=== PATIENT | male | born 1970 | race African-American/Black ===

== ENCOUNTER 2024-11-16 11:08 | Outpatient (OUT) | payer OTHER, SELFPAY ==
--- NOTE | 2024-11-16 11:13 | ECG_ITS ---
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 Measurements Intervals [place] Rate: 54 P: 59 IA: 197 QRS: 37 QRSD: 83 T: 53 QT: 413 QTc: 392 Interpretive Statements SINUS BRADYCARDIA Otherwise normal ECG No previous ECG available for comparison Electronically Signed On 11-16-2024 19:09:48 EDT by TANIA BLACKBURN M.D.
--- NOTE | 2024-11-16 11:36 | XR_ITS ---
The [place] [id number] Patient Name: TAMAR SCOTT MRN: [id number] date: 1970 Sex: M Assigned Patient Location: [facility] Current Patient Location: [facility] Accession/Order Number: [id number] Exam Date: 11/16/2024 12:14 Report Date: 11/16/2024 12:15 At the request of: CLEOPATRA RAMOS MD Procedure: XR chest 2V Chest 2 views CLINICAL HISTORY: Preop exam COMPARISON: None FINDINGS: Heart normal in size. Scattered areas of lung scarring. No consolidation pneumothorax pleural effusion or free air. XR/XR chest 2V IMPRESSION: NO ACUTE CARDIOPULMONARY ABNORMALITY. Impression dictated by: Graham Francisco Jr., D.OAde11/16/2024 12:15 PM Dictation Location: [place] [address] Electronically authenticated by: [id number] Y Date: 11/16/2024 12:15
--- NOTE | 2024-11-16 11:50 | P.GSHP_ITS ---
History of Present Illness History of Present Illness Chief complaint: Left Hydrocele Narrative: Patient presents for presurgical testing with a complaint of left scrotal swelling. The patient states he has been diagnosed with a hydrocele. He also reports intermittent pain and burning with urination, incomplete bladder emptying, urinary frequency and urgency with nocturia, and urge incontinence. Patient denies abdominal pain, nausea, fever, visible hematuria, or any other complaints. Review of Systems ROS Narrative REVIEW OF SYSTEMS: Negative except as stated in HPI, ten or more sys tems reviewed. Constitutional: No fever, chills, weakness ENT: No sore throat or epistaxis Cardiovascular: No edema, chest pain, palpitations, or activity intolerance Respiratory: No shortness of breath, cough, or wheezing Musculoskeletal: No joint pain or swelling Gastrointestinal: No abdominal pain, constipation, diarrhea, or vomiting Genitourinary: No dysuria or hematuria Neurological: No numbness, tingling, weakness, or headache Psychiatric: No mood changes PFSH PFSH Medical History (Updated 11/16/24 @ 11:38 by Cathy Mason NP) Benign prostatic hyperplasia with lower urinary tract symptoms ?N40.1 - Benign prostatic hyperplasia with lower urinary tract symptoms (ICD- 10) Arthritis ?M19.90 - Unspecified osteoarthritis, unspecified site (ICD-10) Low iron ?E61.1 - Iron deficiency (ICD-10) Back pain ?M54.9 - Dorsalgia, unspecified (ICD-10) Anxiety ?F41.9 - Anxiety disorder, unspecified (ICD-10) Asthma ?J45.909 - Unspecified asthma, uncomplicated (ICD-10) Hydrocele ?N43.3 - Hydrocele, unspecified (ICD-10) Heartburn ?R12 - Heartburn (ICD-10) Hypertension ?I10 - Essential (primary) hypertension (ICD-10) High cholesterol ?E78.00 - Pure hypercholesterolemia, unspecified (ICD-10) Diabetes ?E11.9 - Type 2 diabetes mellitus without complications (ICD-10) Surgical History (Updated 11/16/24 @ 11:35 by Cathy Mason NP) H/O hand surgery ?Z98.890 - Other specified postprocedural states (ICD-10) History of tonsillectomy ?Z90.89 - Acquired absence of other organs (ICD-10) History of hernia repair ?Z98.890 - Other specified postprocedural states (ICD-10) ?Z87.19 - Personal history of other diseases of the digestive system (ICD-10) Family History (Updated 11/16/24 @ 11:35 by Cathy Mason NP) Other Delayed recovery from anesthesia Family history of aneurysm Family history of diabetes mellitus Family history of hypertension Family history of prostate cancer Family history of stroke Social History (Updated 11/16/24 @ 11:30 by Cathy Mason NP) Within the past year, how often did you have a drink containing alcohol: monthly or less Smoking status: Former smoker Do you use any of these nicotine containing products: vaping products Non-prescribed substance use: cannabis (any form) Highest level of school completed/degree received: high school graduate Meds Home Medications and Allergies Home Medications ?Medication ?Instructions ?Recorded ?Confirmed ?Type albuterol sulfate 90 mcg/actuation 2 inh inhalation Q6H PRN shortness 11/16/24 11/16/24 History aerosol inhaler of breath or wheezing amlodipine 10 mg tablet 10 mg PO QPM 11/16/24 11/16/24 History atorvastatin 10 mg tablet 10 mg PO QPM 11/16/24 11/16/24 History budesonide-formoterol HFA 160 2 inh inhalation BID 11/16/24 11/16/24 History mcg-4.5 mcg/actuation aerosol inhaler (Symbicort) gabapentin 400 mg capsule 400 mg PO TID 11/16/24 11/16/24 History glimepiride 2 mg tablet 1 mg PO DAILY 11/16/24 11/16/24 History hydrocodone 5 mg-acetaminophen 325 1 tab PO QPM PRN pain 11/16/24 11/16/24 History mg tablet metformin 500 mg tablet 500 mg PO BID 11/16/24 11/16/24 History sertraline 100 mg tablet 150 mg PO DAILY 11/16/24 11/16/24 History tadalafil 20 mg tablet 20 mg PO DAILY PRN sexual activity 11/16/24 11/16/24 History tadalafil 5 mg tablet 5 mg PO DAILY 11/16/24 11/16/24 History tamsulosin 0.4 mg capsule 0.4 mg PO Q24H 11/16/24 11/16/24 History terazosin 5 mg capsule 5 mg PO DAILY 11/16/24 11/16/24 History Allergies Allergy/AdvReac Type Severity Reaction Status Date / Time melon Allergy throat Verified 11/16/24 11:23 itching shrimp Allergy throat Verified 11/16/24 11:23 itching Exam Narrative Exam Narrative: Constitutional: Awake, alert, comfortable, well-appearing, nontoxic, interactive, vital signs as charted Head: Normocephalic, atraumatic Neck: Supple, normal appearance, normal range of motion, no meningeal signs, no lymphadenopathy Respiratory: No respiratory distress, breath sounds clear Cardiovascular: Regular rate and rhythm, strong and regular heart tones Abdomen: Nontender, normal bowel sounds, soft, no CVA tenderness Musculoskeletal: Antalgic gait, no swelling or edema Skin: No rashes or induration, no lesions, only visible skin inspected Neuro: No neurological deficits, normal sensation Psychiatric: Oriented ?3, normal affect Assessment and Plan Assessment and Plan (1) Hydrocele: Plan Left hydrocelectomy scheduled with Dr. William November 24, 2024
[2024-11-16 11:52] LABS: Basophils Percent Auto 0.4 % (0.2-2.0); Eosinophils Absolute Auto 0.2 10^3/uL (0.0-0.7); Eosinophils Percent Auto 2.4 % (0.9-7.0); Hematocrit 39.2 % (42.0-54.0); Hemoglobin 13.1 g/dL (14.0-18.0); Immature Granulocytes Abs Auto 0.02 10^3/uL (0.00-0.03); Immature Granulocytes Pct Auto 0.3 % (0.0-0.5); Lymphocytes Absolute Auto 2.2 10^3/uL (1.2-3.8); Lymphocytes Percent Auto 29.3 % (20.5-60.0); Mean Corpuscular HGB Conc 33.4 g/dL (29.9-35.2); Mean Corpuscular Hemoglobin 29.8 pg (25.9-34.0); Mean Corpuscular Volume 89.1 fL (80.0-94.0); Mean Platelet Volume 9.6 fL (9.5-13.5); Monocytes Absolute Auto 0.5 10^3/uL (0.3-0.8); Monocytes Percent Auto 6.4 % (1.7-12.0); Neutrophils Absolute Auto 4.6 10^3/uL (1.4-6.5); Neutrophils Percent Auto 61.2 % (43.0-75.0); Platelet Count 277 10^3/uL (150-450); Red Cell Distribution Width 14.3 % (11.0-15.0); White Blood Count 7.5 10^3/uL (4.0-11.0)
[2024-11-16 12:10] LABS: Anion Gap 12.4; BUN Creatinine Ratio 15.3; Calcium 8.6 mg/dL (8.5-10.1); Carbon Dioxide 26.4 mmol/L (21.0-32.0); Chloride 104 mmol/L (98-107); Estimated GFR (African America >60 (>=60 mL/min/1.73m^2); Estimated GFR (Non-African Ame >60 (>=60 mL/min/1.73m^2); Glucose 113 mg/dL (74-106); Potassium 3.8 mmol/L (3.5-5.1); Sodium 139 mmol/L (136-145)
[2024-11-16 12:37] LABS: INR 1.08; Partial Thromboplastin Time 35.6 sec (22.3-36.2); Prothrombin Time 11.4 sec (9.0-11.6)
== END 2024-11-16 11:09 | disposition home or self-care (01) ==
LOC: PST 11:10
PROVIDERS: PCP Family Medicine; Visit Provider Urology
DX: Z01.810 Encounter for preprocedural cardiovascular examination (principal); Z01.812 Encounter for preprocedural laboratory examination; Z01.818 Encounter for other preprocedural examination; N43.3 Hydrocele, unspecified
CPT/HCPCS: 71046; 80048; 85025; 85610; 85730; 93005; G0463

== ENCOUNTER 2024-11-24 07:51 | Day surgery (SDC) | payer OTHER, SELFPAY ==
[2024-11-16 11:44] VITALS: BP 129/82; PULSE 60; TEMP 36.6; O2SAT 100; BMI 24.0
[2024-11-24] VITALS (12 sets, daily range): BP systolic 107–135; BP diastolic 68–81; PULSE 66–90; TEMP 36.1–36.4; O2SAT 90–96; BMI 24.4
--- OUTSIDE RECORDS SUMMARY | 2024-11-24 07:57 | XMS_ITS | CCD ---
Author Organization [facility] Care Team Providers Care Steward/Stewardess Third Class Name Role Phone MD Hu Gomez Primary Care Provider [phone] MD Fernando De León Attending Provider Rigoberto Gonzalez MD Primary Care Provider UNIQUE LOZA Primary Care Physician [facility] Attending Provider Rigoberto Gonzalez DO Primary Care Provider [phone] Rigoberto Gonzalez Primary Care Unavailable Yodit Buenrostro Attending Unavailable Yodit Buenrostro Admitting Unavailable DOLTAQUERIA, BENITO Liu Attending Unavailable APLING, CARA B Attending Unavailable APLING, CARA B Referring Unavailable APLING, CARA B Attending Unavailable APLING, CARA B Attending Unavailable NAWAFCACHORRO A Attending Unavailable DOLTAQUERIA, BENITO R Attending Unavailable LISA, RIGOBERTO P Referring Unavailable Eliud WILLIAM R Attending Unavailable WILLIAM, Eliud R Admitting Unavailable WILLIAMEliud R Attending Unavailable WILLIAM, Eliud R Attending Unavailable Orzech, Yodit X Attending Unavailable WILLIAMClarisaEliud R Attending Unavailable HOUSE, DO RIGOBERTO P Attending Unavailable HOUSE, RIGOBERTO P Primary Care Unavailable HOUSE, RIGOBERTO P Primary Care Unavailable Nash Doan Admitting Unavailable Nash Doan Attending Unavailable HOUSE, RIGOBERTO P Primary Care Unavailable Nash Doan Admitting Unavailable Nash Doan Attending Unavailable HOUSE, DO RIGOBERTO P Attending Unavailable HOUSE, DO RIGOBERTO P Admitting Unavailable HOUSE, RIGOBERTO P Primary Care Unavailable HOUSE, RIGOBERTO P Primary Care Unavailable HOUSE, DO RIGOBERTO P Attending Unavailable HOUSE, RIGOBERTO P Primary Care Unavailable HOUSE, DO RIGOBERTO P Attending Unavailable HOUSE, DO RIGOBERTO P Attending Unavailable HOUSE, RIGOBERTO P Primary Care Unavailable HOUSE, DO RIGOBERTO P Attending Unavailable HOUSE, RIGOBERTO P Primary Care Unavailable HOUSE, DO RIGOBERTO P Attending Unavailable HOUSE, RIGOBERTO Iqbal Primary Care Unavailable RACHEL, Eliud Liu Attending Unavailable RACHEL, Eliud Liu Attending Unavailable Allergies Allergy Classification Reported Allergen(s) Allergy Type Date of Onset Reaction(s) Facility (6 sources) Shrimp product Drug Intolerance 4 [facility] (6 sources) Emanuel Melon ([place] Melon) Propensity to adverse reactions 4 [facility] (7 sources) Melon; Translations: [Melon] Propensity to adverse reactions to food Throat irritation (finding) [facility] (7 sources) Shrimp product; Translations: [Shrimp] Propensity to adverse reactions to food Throat irritation (finding) [facility] Medications Current Medications Medication Drug Class(es) Dates Sig (Normalized) Sig (Original) acetaminophen 300 mg / codeine phosphate 60 mg oral tablet (2 sources) Opioid Agonist Start: 05-14-2017 take 1 tablet by mouth three times daily Acetaminophen-Cod eine 300-60 mg Tablet Active 1 TAB PO Three times daily May 13, 2017 11:00pm acetaminophen 325 mg / HYDROcodone bitartrate 5 mg oral tablet (20 sources) Opioid Agonist Start: 10-03-2024 End: 11-02-2024 take 1 tablet by mouth at bedtime HYDROcodone-aceta minophen ([place]) 5-325 MG tablet 1 tab(s), PO, HS, # 30 tab(s), 0 Refill(s), Pharmacy: [id number], 1 tab(s) Oral HS,x30 day(s), 170.18, cm, 10/03/24 10:26:00 EST, Height, 66.9, kg, 03/21/24 10:19:00 EDT, Weight Dosing 10/03/2024 11/02/2024 Active Start: 05-18-2024 take 1 tablet by alysia th every six hours [place] 325 mg-5 mg oral tablet 1 tab(s), Oral, q6hr, Refill(s) 0 Start Date: 05/18/24 Status: Ordered Start: 05-14-2017 End: 01-28-2018 Hydrocodone-Acetaminophen ([place]) 5-325 mg Tablet Discontinued TABLET May 13, 2017 11:00pm January 28, 2018 5:56pm Albuterol (Eqv-ProAir HFA) 90 mcg/inh inhalation aerosol (5 sources) Start: 05-18-2024 take 2 puff(s) by inhalation every six hours Albuterol (Eqv-ProAir HFA) 90 mcg/inh inhalation aerosol 2 puff(s), Inhalation, q6hr Start Date: 05/18/24 Status: Ordered albuterol 108 (90 Base) MCG/ACT inhaler (9 sources) albuterol 108 (9 0 Base) MCG/ACT inhaler every 6 (six) hours Active amLODIPine 10 mg oral tablet (14 sources) Dihydropyridine Calcium Channel Zachery Start: 11-17-2023 take 1 tablet by mouth once daily amLODIPine 10 mg Tab 10 mg = 1 tab(s), Oral, Daily Start Date: 05/18/24 Status: Ordered amLODIPine 10 mg / atorvastatin 10 mg oral tablet (2 sources) Dihydropyridine Calcium Channel Zachery, HMG-CoA Reductase Inhibitor Start: 05-14-2017 take 1 tablet by mouth once daily Amlodipine-Atorva statin 10-10 mg Tablet Active 1 TAB PO Daily May 13, 2017 11:00pm atorvastatin 10 mg oral tablet (14 sources) HMG-CoA Reductase Inhibitor Start: 08-06-2023 take 1 tablet by mouth once daily atorvastatin 10 mg Tab 10 mg = 1 tab(s), Oral, Daily Start Date: 05/18/24 Status: Ordered budesonide-formote rol 160 mcg-4.5 mcg/inh Inh Aer w/adapter (5 sources) Start: 05-18-2024 take 2 puff(s) by inhalation twice daily budesonide-formot boris 160 mcg-4.5 mcg/inh Inh Aer w/adapter 2 puff(s), Inhalation, BID Start Date: 05/18/24 Status: Ordered diclofenac sodium 75 mg delayed release oral tablet (6 sources) Nonsteroidal Anti-inflammatory Drug Start: 06-20-2024 diclofenac (Voltaren) 75 MG EC tablet 75 mg 06/20/2024 Active doxycycline hyclate 100 mg oral capsule (7 sources) Tetracycline-class Drug Start: 09-26-2024 End: 10-10-2024 doxycycline (Vibramycin) 100 MG capsule Take 100 mg by mouth 09/26/2024 10/10/2024 Active Start: 05-18-2024 End: 07-17-2024 take 1 capsule by mouth twice daily doxycycline hyclate 100 mg Cap 100 mg = 1 cap(s), Oral, BID, Have yogurt daily, X 30 day(s), # 60 cap(s), Refills(s) 1, Pharmacy: [facility] [id number], 169, cm, 05/18/24 10:42:00 EDT, Height/Length Dosing, 67, kg, 05/18/24 10:42:00 EDT, Weight Dosing Start Date: 05/18/24 Stop Date: 07/17/24 Status: Ordered Start: 03-17-2024 End: 05-06-2024 take 1 capsule by mouth every twelve hours doxycycline (Vibramycin) 100 MG capsule 1 capsule every 12 (twelve) hours 03/17/2024 05/06/2024 Discontinued (Therapy completed) gabapentin 400 mg oral capsule (16 sources) Anti-epileptic Agent Start: 10-03-2024 take 1 capsule by mouth in the morning, then take 1 capsule by mouth in the evening, then take 1 capsule by mouth at bedtime gabapentin (Neurontin) 400 MG capsule Take 400 mg by mouth in the morning and 400 mg in the evening and 400 mg before bedtime. 10/03/2024 Active Start: 01-20-2024 End: 10-10-2024 take 1 capsule by mouth three times daily gabapentin 300 mg Cap 300 mg = 1 cap(s), Oral, TID Start Date: 05/18/24 Status: Ordered glimepiride 2 mg oral tablet (14 sources) Sulfonylurea Start: 11-05-2023 take 0.5 tablet by mouth once daily glimepiride 2 mg Tab 1/2 tab(s), Oral, Daily Start Date: 05/18/24 Status: Ordered metFORMIN hydrochloride 500 mg oral tablet (16 sources) Biguanide Start: 05-14-2017 take 1 tablet by mouth twice daily metformin 500 mg ER Tab 500 mg = 1 tab(s), Oral, BID Start Date: 05/18/24 Status: Ordered sertraline 100 mg oral tablet (16 sources) Serotonin Reuptake Inhibitor Start: 05-18-2024 sertraline 100 mg Tab 150 mg = 1.5 tab(s), Oral, Daily Start Date: 05/18/24 Status: Ordered Start: 05-14-2017 take 1.5 tablets by mouth once daily sertraline (Zoloft) 100 MG tablet 1.5 tab(s), Oral, Daily, # 135 tab(s), 1 Refill(s), Pharmacy: [facility] [id number], TAKE 1 AND 1/2 TABLET BY MOUTH DAILY, 170.18, cm, 09/21/23 10:22:00 EST, Height, 71, kg, 09/21/23 10:29:00 EST, Weight Dosing 12/07/2023 Active Start: 05-14-2017 Sertraline Act osito 1.5 TAB PO As Directed May 13, 2017 11:00pm tadalafil 20 mg oral tablet (16 sources) Phosphodiesterase 5 Inhibitor Start: 08-09-2024 take 1 tablet by mouth once daily tadalafil (Cialis) 20 MG tablet Take 20 mg by mouth Daily 08/09/2024 Active Start: 12-05-2023 End: 10-10-2024 take 1 tablet by mouth once daily tadalafil 5 mg oral tablet 5 mg = 1 tab(s), Oral, Daily Start Date: 05/18/24 Status: Ordered tamsulosin hydrochloride 0.4 mg oral capsule (14 sources) alpha-Adrenergic Zachery Start: 12-23-2023 take 1 capsule by mouth once daily Flomax 0.4 mg Cap 0.4 mg = 1 cap(s), Oral, Daily Start Date: 05/18/24 Status: Ordered terazosin 5 mg oral capsule (16 sources) alpha-Adrenergic Zachery Start: 05-14-2017 take 1 capsule by mouth once daily at bedtime terazosin 5 mg Cap 5 mg = 1 cap(s), Oral, Once a day (at bedtime) Start Date: 05/18/24 Status: Ordered terbinafine 250 mg oral tablet (2 sources) Allylamine Antifungal Start: 07-25-2024 End: 08-08-2024 take 1 tablet by mouth once daily terbinafine (LamISIL) 250 MG tablet Indications: Tinea pedis due to epidermophyton Take 1 tablet (250 mg) by mouth Daily for 14 days 14 tablet 07/25/2024 08/08/2024 Active Completed/Discontinued Medications Medication Drug Class(es) Dates Sig (Normalized) Sig (Original) [id number] 200 actuat albuterol 0.09 mg/actuat metered dose inhaler (2 sources) beta2-Adrenergic Agonist Start: 05-14-2017 End: 01-28-2018 Albuterol Sulfate (Proair Hfa) 90 mcg/actuation Hfa Aerosol Inhaler Discontinued May 13, 2017 11:00pm January 28, 2018 5:55pm 120 actuat budesonide 0.16 mg/actuat / formoterol fumarate 0.0045 mg/actuat metered dose inhaler (11 sources) Corticosteroid, beta2-Adrenergic Agonist Start: 05-14-2017 End: 01-28-2018 Budesonide-Formotero l (Symbicort) 160-4.5 mcg/actuation Hfa Aerosol Inhaler Discontinued May 13, 2017 11:00pm January 28, 2018 5:55pm budesonide-formo terol (Symbicort) 160-4.5 MCG/ACT inhaler every 12 (twelve) hours Active Problems Active Problems Problem Classification Problem Date Documented Date Episodic/Chronic Abdominal hernia (5 sources) Inguinal hernia 05-13-2024 Episodic Anxiety disorders (5 sources) Anxiety 05-13-2024 Chronic Asthma (14 sources) Asthma; Translations: [Unspecified asthma, uncomplicated] Onset: 02-08-2002-08-2024 Chronic Diabetes mellitus with complications (4 sources) Peripheral neuropathy due to type 2 diabetes mellitus; Translations: [Type 2 diabetes mellitus with diabetic polyneuropathy] 07-25-2024 Chronic Diabetes mellitus without complication (14 sources) Type 2 diabetes mellitus; Translations: [Type 2 diabetes mellitus without complications] Onset: 02-08-20 24 02-08-2024 Chronic Disorders of lipid metabolism (5 sources) Hypercholesterolemia 05-18-2024 Chronic Essential hypertension (5 sources) Hypertensive disorder 05-13-2024 Chronic Hyperplasia of prostate (8 sources) Benign prostatic hypertrophy with outflow obstruction; Translations: [Benign prostatic hyperplasia with lower urinary tract symptoms] Onset: 05-18-20 Chronic Inflammatory conditions of male genital organs (7 sources) Epididymitis; Translations: [Epididymitis] Onset: 05-18-20 Episodic Mycoses (6 sources) Onychomycosis due to dermatophyte ; Translations: [Tinea unguium] 07-25-2024 Episodic Osteoarthritis (5 sources) Osteoarthritis 05-13-2024 Chronic Other connective tissue disease (4 sources) Pain of toe of left foot; Translations: [Pain in left toe(s)] 07-25-2024 Episodic Other connective tissue disease (4 sources) Pain of toe of right foot; Translations: [Pain in right toe(s)] 07-25-2024 Episodic Other diseases of bladder and urethra (9 sources) Overactive bladder; Translations: [Overactive bladder] Onset: 03-21-2003-21-2024 Chronic Other diseases of kidney and ureters (1 source) Urinary tract obstruction; Translations: [Other obstructive and reflux uropathy] Onset: 09-26-19 Episodic Other female genital disorders (5 sources) Disorder of reproductive system 05-18-2024 Episodic Other gastrointestinal disorders (5 sources) Scrotal mass 05-13-2024 Episodic Other male genital disorders (3 sources) Hydrocele of testis; Translations: [Hydrocele, unspecified] Onset: 05-18-20 Episodic Other male genital disorders (1 source) Disorder of male genital organ; Translations: [Other specified disorders of the male genital organs] Onset: 09-26-19 Episodic Other male genital disorders (1 source) Other specified disorders of the male genital organs; Translations: [Other specified disorders of the male genital organs] Onset: 09-28-19 Episodic Other screening for suspected conditions (not mental disorders or infectious disease) (2 sources) Encounter for screening for malignant neoplasm of prostate; Translations: [Screening for malignant neoplasm done] Onset: 05-18-20 Episodic Substance-related disorders (6 sources) Nicotine dependence; Translations: [Nicotine dependence, unspecified, uncomplicated] Onset: 05-18-20 Chronic Unclassified (5 sources) Patient encounter status 05-18-2024 Past or Other Problems Problem Classification Problem Date Documented Da te Episodic/Chronic Conditions associated with dizziness or vertigo (9 sources) Benign paroxysmal positional vertigo; Translations: [Benign paroxysmal vertigo, unspecified ear] Onset: 02-08-2024 02-08-2024 Episodic Other connective tissue disease (9 sources) Olecranon bursitis; Translations: [Olecranon bursitis, unspecified elbow] Onset: 02-08-2024 02-08-2024 Episodic Other connective tissue disease (2 sources) Bursitis of olecranon of right elbow; Translations: [Olecranon bursitis, right elbow] 05-06-2024 Episodic Results Test Name Value Interpretation Reference Range Facility PSA Totalon 10-20-2024 Prostate specific Ag [Mass/Vol] 0.7 ng/mL Normal 0.1-3.5 [facility] Comment on above: Result Comment: The concentration of PSA determined by different manufacturers can vary due to differences in assay methods and reagent specificity. Values obtained from different assay methods cannot be used interchangeably. The methodology used for this result was chemiluminescence using [employer]'s Access Hybritech PSA reagent. Performed By: #### 1 [id number] #### [facility] [address] [place] [address] Urology Office/Clinic Noteon 10-19-2024 Urology Office/Clinic Note Urology Office/Clinic Note Chief Complaint 2 month with US HPI Staff 2 month follow up w/Scrotal US Previous DX: BPH w/urinary obstruction, epididymitis-left, left hydrocele, mass of scrotum Previous PSA 11/13/22 - 0.49 PVR: 57 ml Dysuria: sometimes has some pain and burning while urinating Incomplete bladder emptying: less than half the time Hematuria: denies visible blood Frequency: once very 2 hours Urgency: yes Nocturia: 5 x a night Stream: denies straining, has a weak stream less than one time in five, has some stop and go Leaking: sometimes Post void dripping: denies Wearing pads/ Depends: denies Urge incontinence: yes Stress incontinence: denies Incontinence without Sensory Awareness: denies Abdominal pain: some lower abdominal pain Flank pain: denies Sexual complaints: _ History of Present Illness Tests reviewed: UA, scrotal US I have reviewed the previous health record information and history for this patient from Dr. William. I have reviewed and verified the staff HPI to be accurate for this encounter. Review of Systems PHQ Score Initial Depression Screen Score: 0 SCORE ROS - Provider Constitutional: denies weight loss, denies hot flashes. Eyes: denies eye problems. Gastrointestinal: denies nausea, denies vomiting. Cardiovascular: denies chest pain or angina. Integumentary: no dryness Musculoskeletal: denies musculoskeletal symptoms. ENMT: denies otolaryngeal symptoms. Respiratory: no shortness of breath. Heme/Lymph: denies easy bleeding tendency, denies easy bruising tendency. Psychiatric: no confusion, no anxiety. Genitourinary: See HPI. Physical Exam Vitals & Measurements T: 36.5 ???C(Temporal Artery) HR: 65(Peripheral) RR: 16 BP: 110/70 HT: 67 in HT: 169 cm WT: 71 kg WT: 156.528 lb BMI: 24.86 General Appearance: alert, no distress, well nourished, well developed male. 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 1. Epididymitis, left (N45.1: Epididymitis) Scrotal US 12/28/23 Lalo - Small amount of fluid in R hemiscrotum wo johnnie hydrocele. Likely moderate to large hydrocele on L measuring 5.8 x 4.4 x 1.8 cm. Mild complexity of L hydrocele which may be related to percutaneous debris. Scrotal US 09/28/24 FR - Complex cyst 8 mm R epididymal head region vs hematocele. L hydrocele. Treated with Doxycycline 100 mg bid x 2 mos at prior OV. Zero improvement. No gross hematuria. Burning every now and then. Reports large scrotum. Sore from hydrocele. Twice the size that it was. R side wo issue. States he called the office a few weeks ago d/t worsening swelling and was placed on a different abx however I do not see record of this. No further abx course indicated, risk of SEs. PE: __large tense hdyrocele_. -Void q2-3hrs during the day whether urge is present or not 2. Left hydrocele (N43.3: Hydrocele, unspecified) Scrotal US 12/28/23 Lalo - Likely moderate to large hydrocele on L measuring 5.8 x 4.4 x 1.8 cm. Mild complexity of L hydrocele which may be related to percutaneous debris. Small amount of fluid in R hemiscrotum wo johnnie hydrocele. Scrotal US 09/28/24 FR - L hydrocele. See #1. Symptomatic, hydrocelectomy recommended. Need #1 to resolve first however. Would need at least one wk off work for sure, preferably 2 if doing strenuous activity. Will take about 2 mos to completely heal. -Scrotal support -Pt update in 2 wks, if stable, proceed with procedure below -Will schedule L hydrocelectomy. The procedure risks, benefits, and treatment alternatives have been discussed with the patient. These include bleeding, infection, recurrence of fluid collection in the scrotum in 10-15%, and need for additional procedures, among others. Full informed consent has been obtained. Will order General anesthesia. 3. BPH with urinary obstruction (N40.1: Benign prostatic hyperplasia with lower urinary tract symptoms) UA neg. IPSS 21 (21). PVR 57 cc. Taking Tamsulosin 0.4 mg qd per PCP. Terazosin 5 mg qhs and Tadalafil 5 mg qd also on med list through external providers. Good stream as long as he takes Flomax. Feels he empties completely. 4. Screening PSA (prostate specific antigen) (Z12.5: Encounter for screening for malignant neoplasm of prostate) PSA: 08/07/20 - 0.47 10/17/21 - 0.39 11/13/22 - 0.49 -Cont PSA monitoring w/ PCP -PSA to be drawn IO today Follow-up With When Contact Information Eliud WILLIAM MD, URL [facility] [address], [place] [address]- Additional Instructions: update in 2 wks, if sxs the same, proceed with L hydrocelectomy Patient Education Hydrocelectomy, Adult, Care After Hydrocelectomy, Adult Hydrocele, Adult I, Erika Keane, personally scribed for Dr. William on 10/19/2024 14:47:57. . Documentation recorded by the scribeErika, accurately reflects the services(s) I performed and decisions made by me. Authenticated by Dr. William (more content not included)... Normal [facility] Comment on above: Result Comment: Elec tronically Signed By: Eliud WILLIAM MD\.br\Date and Time Signed: 10/19/24 14:54 EST\.br\Electronically Co-Signed By: Erika Keane\.br\Date and Time Co-Signed: 10/19/24 14:48 EST US scrotumon 09-28-2024 US scrotum [facility] [place] [address] [place] [address] Ultrasound Report Signed Patient: Tamar Bautista MR#: [id number] : 1970 Acct:[id number] Age/Sex: 54 / M ADM Date: 09/28/24 Loc: Room: Type: [facility] Attending Dr: Yodit CARTAGENA Ordering Provider: OSIEL Sanders Date of Service: 09/28/24 US/US scrotum: N50.89 Copies to: OSIEL Sanders Scrotal ultrasound HISTORY: Left testicular swelling for 3 weeks COMPARISON: None RIGHT testicle measures 4.2 x 2.2 x 2.5 cm. LEFT testicle measures 4.8 x 2.9 x 2.4 cm. No testicular mass or microcalcifications identified. Normal color flow of both testicles identified. RIGHT epididymal head measures 1.2 cm. Contains complex 8mm cyst in the epididymal head region.. LEFT epididymal head measures 9 mm. . Left hydrocele present. No scrotal wall abnormality identified. US/US scrotum IMPRESSION: Left hydrocele. Normal testicles. Right epididymal head by the complex 8mm cyst versus hematocele. Impression dictated by: Willam Guevara M.D.09/28/2024 4:47 PM Dictation Location: [place] [address] Tech: Kylie Gibbs Transcribed By: [facility] 09/28/241646 Dictated By: Willam Guevara DO 09/28/241644 Signed By: 09/28/24 164 Normal [facility] Ambulatory Visit Summaryon 0 09-26-2024 Ambulatory Visit Summary Ambulatory Visit Summary TAMAR BAUTISTA :1970 Visit Date:09/26/2024 Ambulatory Visit Instructions Your Diagnosis BPH with urinary obstruction Left hydrocele Scrotal swelling Other obstructive and reflux uropathy Tests Performed US Scrotum (Contents) -- Results Pending -- Please visit your patient portal for your results or contact your primary care physician. Your Care Team Attending Physician - Orzech HOME DESIGNER, MACHINE RIGGER-C, Yodit X Primary Care Physician - UNIQUE LOZA MD This Is Your Medications List acetaminophen-hydrocodon e ([place] 325 mg-5 mg oral tablet) albuterol (Albuterol (Eqv-ProAir HFA) 90 mcg/inh inhalation aerosol) amlodipine (amLODIPine 10 mg Tab) atorvastatin (atorvastatin 10 mg Tab) budesonide-formoterol (budesonide-formoterol 160 mcg-4.5 mcg/inh Inh Aer w/adapter) gabapentin (gabapentin 300 mg Cap) glimepiride (glimepiride 2 mg Tab) metformin (metformin 500 mg ER Tab) sertraline (sertraline 100 mg Tab) sulfamethoxazole-trimeth oprim (Bactrim D.S. 800 mg-160 mg Tab) tadalafil (tadalafil 5 mg oral tablet) tamsulosin (Flomax 0.4 mg Cap) terazosin (terazosin 5 mg Cap) Procedures Performed Hernia repair (09/10/2018), Tonsillectomy. Discharge Vitals Heart Rate (Peripheral) 70 Blood Pressure 124/64 Height 169 cm Height 67 in Weight 69.4 kg Weight 153.001 lb BMI 24.3 What to do next Scheduled Follow-Up Appointments Thursday 2:00 PM EST With: RACHEL MOODY, Eliud Liu Where: [facility] [address] [place] [address]- Medications What How Much When Why Instructions New sulfamethoxazole-trimeth oprim (Bactrim D.S. 800 mg-160 mg Tab) 1 Tablets By Mouth 2 times a day Scrotal swelling Duration: 14 Days Pickup at [facility] [id number] Unchanged acetaminophen-hydrocodon e ([place] 325 mg-5 mg oral tablet) 1 Tablets By Mouth Every 6 hours Unchanged albuterol (Albuterol (Eqv-ProAir HFA) 90 mcg/ inh inhalation aerosol) 2 Puffs Inhalation Every 6 hours Unchanged amlodipine (amLODIPine 10 mg Tab) 1 Tablets By Mouth Every day Unchanged atorvastatin (atorvastatin 10 mg Tab) 1 Tablets By Mouth Every day Unchanged budesonide-formoterol (budesonide-formoterol 160 mcg-4.5 mcg/ inh Inh Aer w/ adapter) 2 Puffs Inhalation 2 times a day Unchanged gabapentin (gabapentin 300 mg Cap) 1 Capsules By Mouth 3 times a day Unchanged glimepiride (glimepiride 2 mg Tab) 1/2 tab(s) By Mouth Every day Unchanged metformin (metformin 500 mg ER Tab) 1 Tablets By Mouth 2 times a day Unchanged sertraline (sertraline 100 mg Tab) 1.5 Tablets By Mouth Every day Unchanged tadalafil (tadalafil 5 mg oral tablet) 1 Tablets By Mouth Every day Unchanged tamsulosin (Flomax 0.4 mg Cap) 1 Capsules By Mouth Every day Unchanged terazosin (terazosin 5 mg Cap) 1 Capsules By Mouth Once a day (at bedtime) Pharmacy Information [facility] [id number]: [address], [place] [phone] Allergies Melon (Throat irritation) Shrimp (Throat irritation) Problems Ongoing - Any problem that you are currently receiving treatment for. Anxiety Asthma BPH with urinary obstruction Epididymitis, left High cholesterol Hypertension Inguinal hernia Left hydrocele Mass of scrotum Osteoarthritis Screening PSA (prostate specific antigen) Smoker Type 2 diabetes mellitus Patient Survey You may receive a survey via text or e-mail asking about your office visit. Please share your experience with us by completing your survey. We appreciate your feedback and thank you for choosing us for your care. [facility] Outside Recordson 07-26-2024 Outside Records [id number] TIFF [facility] Provider Letteron 07-26-2024 Provider Letter Provider Letter July 26, 2024 TAMAR BAUTISTA [address] [place] [id number] : 1970 Dear Tamar , We have been trying to reach you with no success. You have an appointment with Dr. William on 08/09/2024 which will need to be rescheduled since he/she will be out of the office that day. Please contact the office at the number listed below to get this appointment rescheduled at your earliest convenience. Thank you for your prompt attention to this matter. Sincerely, [facility] [address] [address] [facility] Progress Note - Nurseon 10-2 Progress Note - Nurse Gave 0.5mL of Fluarix into patients Left Deltoid. Patient tolerated well. [Electronically Signed on: 06/20/2024 11:45 EDT] Marielos Chen MA [Verified on: 06/20/2024 11:45 EDT] Marielos Chen MA [facility] Ambulatory Visit Summaryon 0 05-18-2024 Ambulatory Visit Summary Ambulatory Visit Summary TAMAR BAUTISTA :1970 Visit Date:05/18/2024 Ambulatory Visit Instructions Your Diagnosis Epididymitis, left Left hydrocele BPH with urinary obstruction Screening PSA (prostate specific antigen) Smoker Your Care Team Attending Physician - RACHEL MOODY, Eliud Liu Primary Care Physician - DAGO MOODY, UNIQUE Referring Physician - RIGOBERTO GONZALEZ DO This Is Your Medications List doxycycline (doxycycline hyclate 100 mg Cap) Contact prescribing physician if questions or concerns acetaminophen-hydrocodon e ([place] 325 mg-5 mg oral tablet) albuterol (Albuterol (Eqv-ProAir HFA) 90 mcg/inh inhalation aerosol) amlodipine (amLODIPine 10 mg Tab) atorvastatin (atorvastatin 10 mg Tab) budesonide-formoterol (budesonide-formoterol 160 mcg-4.5 mcg/inh Inh Aer w/adapter) gabapentin (gabapentin 300 mg Cap) glimepiride (glimepiride 2 mg Tab) metformin (metformin 500 mg ER Tab) sertraline (sertraline 100 mg Tab) tadalafil (tadalafil 5 mg oral tablet) tamsulosin (Flomax 0.4 mg Cap) terazosin (terazosin 5 mg Cap) Procedures Performed Hernia repair (09/10/2018), Tonsillectomy. Discharge Vitals Heart Rate (Peripheral) 60 Blood Pressure 110/78 Height 169 cm Height 67 in Weight 67 kg Weight 147.4 lb BMI 23.46 What to do next Scheduled Follow-Up Appointments Thursday 8:45 AM EST With: Eliud WILLIAM MD Where: [facility] [address] [place] [address]- You Need to Schedule the Following Appointments Follow Up with Eliud WILLIAM MD, URL When: Where: [facility] [address] [place] [phone] Medications What How Much When Instructions New doxycycline (doxycycline hyclate 100 mg Cap) 1 Capsules By Mouth 2 times a day Duration: 30 Days Refills: 1 Have yogurt daily [id number] Unchanged acetaminophen-hydrocodon e ([place] 325 mg-5 mg oral tablet) 1 Tablets By Mouth Every 6 hours Contact prescribing physician if questions or concerns Unchanged albuterol (Albuterol (Eqv-ProAir HFA) 90 mcg/ inh inhalation aerosol) 2 Puffs Inhalation Every 6 hours Contact prescribing physician if questions or concerns Unchanged amlodipine (amLODIPine 10 mg Tab) 1 Tablets By Mouth Every day Contact prescribing physician if questions or concerns Unchanged atorvastatin (atorvastatin 10 mg Tab) 1 Tablets By Mouth Every day Contact prescribing physician if questions or concerns Unchanged budesonide-formoterol (budesonide-formoterol 160 mcg-4.5 mcg/ inh Inh Aer w/ adapter) 2 Puffs Inhalation 2 times a day Contact prescribing physician if questions or concerns Unchanged gabapentin (gabapentin 300 mg Cap) 1 Capsules By Mouth 3 times a day Contact prescribing physician if questions or concerns Unchanged glimepiride (glimepiride 2 mg Tab) 1/2 tab(s) By Mouth Every day Contact prescribing physician if questions or concerns Unchanged metformin (metformin 500 mg ER Tab) 1 Tablets By Mouth 2 times a day Contact prescribing physician if questions or concerns Unchanged sertraline (sertraline 100 mg Tab) 1.5 Tablets By Mouth Every day Contact prescribing physician if questions or concerns Unchanged tadalafil (tadalafil 5 mg oral tablet) 1 Tablets By Mouth Every day Contact prescribing physician if questions or concerns Unchanged tamsulosin (Flomax 0.4 mg Cap) 1 Capsules By Mouth Every day Contact prescribing physician if questions or concerns Unchanged terazosin (terazosin 5 mg Cap) 1 Capsules By Mouth Once a day (at bedtime) Contact prescribing physician if questions or concerns Pharmacy Information [facility] [id number]: [address] [place], [place] [id number] [phone] Allergies Melon (Throat irritation) Shrimp (Throat irritation) Problems Ongoing - Any problem that you are currently receiving treatment for. Anxiety Asthma BPH with urinary obstruction Epididymitis, left High cholesterol Hypertension Inguinal hernia Left hydrocele Mass of scrotum Osteoarthritis Screening PSA (prostate specific antigen) Smoker Type 2 diabetes mellitus Patient Survey You may receive a survey via text or e-mail asking about your office visit. Please share your experience with us by completing your survey. We appreciate your feedback and thank you for choosing us for your care. Education Materials Epididymitis Epididymitis is inflammation or swelling of the epididymis. This is caused by an infection. The epididymis is a cord-like structure that is located along the top and back part of the testicle. It collects and stores sperm from the testicle. This condition can also cause pain and swelling of the testicle and scrotum. Symptoms usually start suddenly (acute epididymitis). Sometimes epididymitis starts gradually and lasts for a while (chronic epididymitis). Chronic e (more content not included)... Normal [facility] Urology Office/Clinic Noteon 05-18-2024 Urology Office/Clinic Note Urology Office/Clinic Note Chief Complaint New patient hydrocele HPI Staff New Pt. Referral per Rigoberto Gonzalez due to hydrocele. Scrotal US 12/28/23 Lalo - Suggested L epididymal cyst 1.7 x 1.3 x 0.8 cm. Small amount of fluid in the R hemiscrotum wo johnnie hydrocele. Likely mod to large hydrocele on the L 5.8 x 4.4 x 1.8 cm. Mild complexity of the L hydrocele which may be related to proteinaceous debris. Hemoglobin A1c: 11/13/2022- 6.9 PSA: 08/07/20 - 0.47 10/17/21 - 0.39 11/13/22 - 0.49 Dysuria: sometimes has some pain when urinating Incomplete bladder emptying: denies Hematuria: denies visible blood Frequency: depends on caffeine intake but he usually goes every 2 hours, but it could be every 20 mins Urgency: yes Nocturia: 3 x a night Stream: denies hesitancy, has a strong stream Leaking: denies Post void dripping: denies Wearing pads/ Depends: denies Urge incontinence: rarely Stress incontinence: denies Incontinence without Sensory Awareness: denies Abdominal pain: denies Flank pain: denies Sexual complaints: _ History of Present Illness Tests reviewed: reviewed UA, referral records, scrotal US I have reviewed the previous health record information and history for this patient from external providers. I have reviewed and verified the staff HPI to be accurate for this encounter. Review of Systems PHQ Score Initial Depression Screen Score: 0 SCORE ROS - Provider Constitutional: denies weight loss, denies hot flashes. Eyes: denies eye problems. Gastrointestinal: denies nausea, denies vomiting. Cardiovascular: denies chest pain or angina. Integumentary: no dryness Musculoskeletal: denies musculoskeletal symptoms. ENMT: denies otolaryngeal symptoms. Respiratory: no shortness of breath. Heme/Lymph: denies easy bleeding tendency, denies easy bruising tendency. Psychiatric: no confusion, no anxiety. Genitourinary: See HPI. Physical Exam Vitals & Measurements HR: 60(Peripheral) BP: 110/78 HT: 67 in HT: 169 cm WT: 67 kg WT: 147.4 lb BMI: 23.46 General Appearance: alert, no distress, well nourished, well developed male. Head: normocephalic . Eyes: normal orbit and globe. ENMT: normal examination of external ears. Chest: Lungs CTA, respirations non labored. Cardiovascular: regular rate and rhythm. Abdomen: soft, non distended, no tenderness, no mass or organomegaly, no hernia. Genitourinary: abnormalL moderate hydrocele scrotum, normal testes, normal urethra, tender, indurated and enlarged left epididymis, normal vas deferens/spermatic cord. Flank Pain: none. Bladder: nonpalpable. Penis: normal shaft, normal glans. Lymph Nodes: unremarkable palpation of the cervical area. Skin: warm, dry, no bruising. Psychiatric: cooperative, affect appropriate for age, normal judgement, euthymic mood. Assessment/Plan Tamar is a 54 yo male new pt referred by Dr. Gonzalez for hydrocele. 1. Epididymitis, left (N45.1: Epididymitis) Scrotal US 12/28/23 Lalo - Small amount of fluid in R hemiscrotum wo johnnie hydrocele. Likely moderate to large hydrocele on L measuring 5.8 x 4.4 x 1.8 cm. Mild complexity of L hydrocele which may be related to percutaneous debris. Reports pain and swelling in testicle which prompted PCP to order US. States he was given abx but did not have sx improvement. Upon physical exam today, pt has a tender, indurated and enlarged left epididymis which appears to be infected. Discussed prior abx course was likely not long enough. Advised pt he needs an extended course given anatomy and difficulty treating infection. -Take doxycycline 100mg bid x2 months. Eat yogurt daily for gut health. Rx sent to [facility]. -Void q2-3hrs during the day whether urge is present or not -F/u in 2-3 mos 2. Left hydrocele (N43.3: Hydrocele, unspecified) Scrotal US 12/28/23 Lalo - Small amount of fluid in R hemiscrotum wo johnnie hydrocele. Likely moderate to large hydrocele on L measuring 5.8 x 4.4 x 1.8 cm. Mild complexity of L hydrocele which may be related to percutaneous debris. Educated pt hydroceles can be caused by infection. Discussed the options for his hydrocele. There is no absolute indication that he needs this repaired. As the fluid collection increases in size and becomes more symptomatic, he may consider repair. This involves a scrotal incision, removing the sac of fluid, and, perhaps, removing part or all of the sac itself. There is a 10-15% chance of recurrence of this scrotal fluid collection, which may require another procedure in the future. 3. BPH with urinary obstruction (N40.1: Benign prostatic hyperplasia with lower urinary tract symptoms) IPSS 21. Good stream. Feels he empties. Denies infections or gross hematuria. UA today negative for blood and infection. Taking Tamsulosin 0.4mg qd per PCP. 4. Screening PSA (prostate specific antigen) (Z12.5: Encounter for screening for malignant neoplasm of prostate) PSA 08/07/20 - 0.47 10/17/21 - 0.39 11/13/22 - 0 (more content not included)... Normal [facility] Comment on above: Result Comment: Elec tronically Signed By: RACHEL MOODYEliud\.br\Date and Time Signed: 05/18/24 11:38 EDT\.br\Electronically Co-Signed By: Carina Marquez\.br\Date and Time Co-Signed: 05/18/24 11:33 EDT Outside [facility] 05-09-2024 Outside Records [id number][facility] [id number]#1.00O [facility] Outside Recordson 03-23-2024 Outside Records [id number]#1.00OTG [facility] Outside Records [id number]#1.00OTG [facility] Outside [facility]son 02-24-2024 Outside Records [id number]#1.00OTG [facility] Coding Summaryon 01-04-2024 Coding Summary HTMLBase 64 CdwbvgpgLJk4zQx+PGhlYWQ+ IG8PCSMtL13szRJgnQ2mL6LC TElOSywgQVBQTElOSyIgbmFt CT8xnDDxLGSx IC8+AN8aPCNlSmcplNQtj7C8 oME3E80tdo3vXIjtzCR2RMQp HaMdkgmzz5lheMj4WGroJjhs OyBt GGPlcA74JRB3vW36Yj47sUAn yHSuq5nsyUn2WlYgSBTxGUA0 aHtsCHocz9WxSJTbR19sqWJa c2U6 WMCejNaorBBxYsKksBO4kU5k MVgtomuqs6bywomqGgb7nn51 gHTug0G2mVO1B9DeycF2DRZo bGQg EmcgpCYMrY6ehdban5jihwyx JjKzCHHdTIx1VVy1KHWpjUdz LwXmDA54BYB3HILhguJhI9Ye LWFs rFfbTlQ8q5V2Mf4ON8RNVezp Q8ZKEVXWEOmuvDW+PY58br63 Q7RqNipcXcx4ZUQhTTL8qRQ8 aD0n GAYoUQtkx1T5hGQ7D8WtxaYy qk1hi4jtWTElLHjeE89xzSGd u1P4EFWhbRO2SPZjoXknXoHf aG93 Oyc+YZLrxJqtb1KyLqkci1ib q1vqnIb6NypbQZLfinCveHmw CVK9b0TfNe4bLSTaqOW1bBR0 aD0i BtYzQsJ5FKztM124BeBkrUKg OyulT55dY8DgmKO+PHRyPjx0 PKWfoXjjVX9dS7CsGHXzpcyj bGVm eMrpCS1iHQDgirzwAJOxbO0c ZERiE9x3IbTsSfO5HUwnD3Xp YJMyxpxeYp41dT4xMrCfIuD8 MGlu K2QwwyV3JDFeaUCiBMucCCV1 H42uo1X1SKKjKLLyVZS9mFB7 fT7fdLronbykjSCfdJtbzkWa dGlj TTwzSVtiZ922HYLliNiwDsDu ZGluZyBEYXRlOiAgMDUvMDYv MjAyNDwvdGQ+AYUfMWG8lCat PSAn aSVgYJwsDl6ooDwpsDiwOW2y KKEsvrqsSKWphB4kGUYehUGz hMemKR0oQXIizuxds602CgUi MHB0 EZCjzNCsM2AxbP5pBhDfOEGw YLIlF9CobQLaKFpaK823CDtp HfE8AIKruuUbS3GyKGJnhRnc OiB0 k2H3Ea1Zu5QzreocM0TmoEFt RvKtDybfWOq5I4TqOukmvDV+ YD46JIMzKM20AKo1HTQ8jHtg PSdi CVRnG7RetJ2eBsGpNNKdQXEf Oyc+PHRhYmxlIHdpZHRoPScx YVAaZgTgfEhhVL9eVf2ySJIt LWNv xDjxdCBeEsTdp6zeNVYhBMws WM3htXceV7WceBU3NESqc4m2 Vk58B94zU0AqkYU+PGNvbCB3 aWR0 gP2wQiFdUpM8MMvxX198AxAa bQTaZcfcu5hmb8voiBo7UkL1 BHOfluTfzYmkGLV0w6AxUh87 Y29s IHdpZHRoPSIxNSUiIHZhbGln mi4omN5cNx7+VIBabFI9cFC4 bU8qNnZqJvM5PNoxW865ZpSb cCIv Dajer9dxp7snzVz5SgQzMBYz ubWjhJvfISB7w9MlOc85J3Wj jKgbl8XrWnj1ee70oYBai8L1 bGU9 E6WaRCLavxpwfVMgsRmjXD5x LMMvqylfMFCbdN9hMLNeI1b5 CzMdTdP2ZIvhG4HtcuQ9QEFa bGQg GVKygIAZuO1zzpwgb8deutte WnPlVEHfMHs2BPv8TOWizEgk SkAeBBP3ZdP7VHC6bDSjhW0b bGln zkhnzY7rWjm+UTX8xTPawESV CK1sHzfjrGV+MOObUSV6wEux JZkyERVqxA0sLIMoE6z9UbQf LjA1 RPhuL3NeseZ4OANsrAQaCURy kNQUfL4xyyier2kesktrOfSa QOJwPYj8HGh3VRTzbWxzUvOb ZWZ0 JcD9QFT4jQIieT8obLqktqxx cQ2xIrt+TsbggRxoHNW6ZOl5 F4DbTnw0VCXjaGtsOY6evCOi ZGlu Do2vuFkfaXobQP4uXWWihnbl l821WrMvt7ipQSWzfTVzPPbr REL0B27nu7A8REKnSPUvOUJ6 dGV4 zL1zwHlcwkzofTFckAlbuuVs sUsxKLhvKKcxN201NSZkxRqc NbTfXKq9W5LzUmh1EQNozBhv ZT0n dXIjZGfpGn0aoAjllBpvDI6g KHSadqndu018JnTwp4vwYQVk iMPlVUlqRDZ0Z64ks1Y5OYHw MDAw JIM4vWO0yK7viWyzoeptzXUm hVqeegTszByxYIgvGOcmT377 NSBzoGugDyLzyLh6V4WsIbw4 ZCBz wZhxYH6zwYGxNJwlCw6mhTwf lUymBY0oOUYdnpxah748AmNj m3wcGOHnuOAtCCfqIGM9B24c b3I6 DGMkKWIpLDI2sAC9vJ1cxSwy bjogbGVmdDsgdmVydGljYWwt ZGgdZ263EBAnlVrdCrQztTpf bnQg LNhvXDf8C7NfOnfsrKP+PC90 TUGlAK07qAGyiRIeb0lcnOf5 KrObFISnWRA2aXhsNIspn3Iy ZXIt A56wjBYmy6E5UAWitThslSZe XtSrtKQ7iP9uZJxioaxdu0nb vvqgEtkxk0nqpw42kY49G59m IHdp NRYzPTBaBNIbKZPwoUowbn7m mU7mYt2+IDYayYV5tMJ5iX7z VJQmGbS0XMzgO567PpBvePHj Pjxj k0dxx5hpqIv5SlA9BLXtjjGq eGtvHSE6w6JjJg15X90cIMjg RGUmOIVvMLBeSPUeaAlxvk9g dG9w Ii8+EPWikLV7dUH5xK0aOoTq GoQ4XAohS766YvXpsVQlYkth D89xP6NxxAY+BGTyXwd9MLNd dHls JG1zzACnZFpqEd4pBYW0LcMc FgNtXChpB9UuAPVuqljseotk wEX5GDRcOUKvxC83Gv7hwIff MTBw nNXCiY7kdcmdj0dxnijqDhWp XHYdVBq7CYr2ARJizMvpBoTq VIX7AmV5WUE1bGVyqD1ujMjq bjog bM4qW1LtOSUzvjcyOo48vE1i PeQmQaY6JSrdOmf+QE2KBdQl K2UyFJBUEK4vSUossFV+PHRk IHN0 sPdiHHhnUPJffR0gMXDfM7e9 YuRsQkD9FPczP9UsXTBysfjw En79kZ7yNpQsQpZ8XJzxP4Wk bnQ6 TAEyiGXiTKpgEJB3Z64yx7P2 SQMeEEKnVFM6tOC2jQ0wpTpc bjogbGVmdDsgdmVydGljYWwt YWxp M457AUAueEoyLpC3KsVfNzG2 Tfr2M5VwBnf6WTQouJpkXB3m gIOrWBrnBr1xcBaibSdgPS7u NTBp jzuoCIHjtZ8aZUQybQHfqWnd AO5bJBPyunfii830WtJvFLN3 FBAycFRoT0OzdM3qBkJmHUFn MDAw T5YmhNYlONcvT172UGzpPaU0 UHJruyTrU2NeDLFdlDtlJhJ6 k5T7Oi15RYLGKKOtboslxRM+ PHRk YBZ2iPupWQpzGADkyI3vKCOz K9a7YnAjCsV2NDquL5EhUTKj npfwJk34mS4bDgWuRhB9XHon O2Zv ylT4QTQaoKDiIRwiGAI6W92z j8O0HKPyJOCgNOX6bPB2dJ8w bGlnbjogbGVmdDsgdmVydGlj YWwt VPfqM631RMXozRtpAq3FOJC1 G9SaOmd9XGZnqAoyMH7enLDn ZHbyIl0ugHvzzGmeYI6vLQKo bjtw PEVknT4pDYEozKHddCyzMU6e LFJmjqnhc371ExJqNOE5OTQk rILqX6GqqK0mGvVyENAnZRCd O3Rl aHNlUUwiD567BXgzOtM1NXTy leTyD4TbQPAkrRrpMsG5p7G9 Zb2NQHxoaUQ+VC30nh90I2Dn Ymxl Pez7KVZpBMC6rFF2sZ5cUGAv WGyju4G5iMW0Q5BagqLioa9j y8skDGBvLYewY14fhESby8J0 IGVt nNB0UCMklUueEcAcxA46Luz+ BFTxiNyjg7LgSqfga2sqh2tx vFb2NbHbPUJgkpBzhGzcKMS9 b3Ai Ge72C18uXWkcLYOeMRDhHIQs AXFwvJaxer2flA9uWo1+PGNv hAQ5jIJ4jB8qHuNrBxK5XLrx Z249 ZsTpyEYqRwbkn3fue1spsKc3 QaLzZGCbwqHyzJlzMZG6r5Tk Bs96Q6BbwSpix3TgOsk5fv30 dGQg n8D1cEM8T1QcGBZmhopkeSYg oQtrXX5eTSJcuqvoNAIirU7x DPSjX5j5IeMfLuF4BRnpO7Gy bnQ6 GONhaJEnBSBvxHNGmF9iuxsz u9rajrgdRhJsLJByYLl3KXb6 PKRonNhrAoDyONH4RmW7ESD8 aWNh bA9ozKxbaqtpcW6fChr+UGh5 u3wpeBOgZR2ldAN1GS00VH47 jHKsk5R7iRW5W1DtBCAkrwwd cmln mBX4EVGcOLQvaI78Xj4roPtl Fq0fOXSzYQV2CTOteWIfV9Ce lS0vQyOuZJLnRYCeF9LdeUJm YWxp T487LFxwOhQ8PANgygRkP6Qx QHZvnHctUaZ6m8W1Ut7TVF57 RU37UN50nVLqc6C4lAI7R6Do ZGRp xqfpmtqfnDW0NRIwBMFfuA17 Wq9unGxvVg0aJFUuSTN7ZFJr oUVaH0KekN7vLpLmOTEnEGMk O3Rl wOLlRLgpL020UFxbGqX9VNJy fyZrJ1SiDUGegIpqHzA2v1P7 Qg8NRt43NC45UA98oMMtd7Y5 bGU9 L2IiJKEzuhweyllykQW4XNXx KRJjqP03Lx6wkJpuRp4fOULk ZSP3SWMlkKGzW6QmuC6iChVu MDAw QDQcO1AdiTRlJRqjI696TEua DsU4QRTknmWkQ6LlUTPiqRpg YbZ9g3B9Tw5OLTbvhgo1T6Ql Pjwv dHI+BD68FZCxPS68rWSnjMRs k0rjgFr3MsRrDCAzEHJ3kMbt BDapu4TgOIBgO68daFPiq3G4 IGNv bGx (more content not included)... Normal [facility] Reminder Messageson 12-30-19 24 Reminder Messages - From: RIGOBERTO GONZALEZ DO To: [facility] Clinical Pool ([facility]); Sent: 12/29/2023 07:39:16 EDT ! Show up: 12/29/2023 07:39:16 EDT Subject: Results Follow Up Actions: Call the patient with result(s) Due Date/Time: 12/30/2023 07:38:00 EDT Reminder Comments: pt does have a hydrocoele on the left. refer to urology Results: Date Result Type Result Name 12/28/2023 16:06 Radiology US Scrotum (Contents) Patient notified, referral order placed for urology in [facility] US Scrotum (Contents)on 11-30 US Scrotum (Contents) EXAM: US Scrotum (contents). HISTORY: Other specified disorders of the male genital organs. Left side lump and pain. COMPARISON: None. TECHNIQUE: Ultrasound study of the scrotum and testicles was performed. FINDINGS: Right testicle measures 4.0 x 2.6 x 2.5 cm, left testicle measures 4.6 x 2.6 x 2.6 cm in longitudinal, transverse and AP dimensions. Vascularity in each testicle appears grossly unremarkable without evidence of testicular torsion. No obvious orchitis. Right epididymal region appears grossly unremarkable. In the left epididymal body region there is ovoid area of decreased echogenicity like representing epididymal cyst measuring 1.7 x 1.3 x 0.8 cm. Small amount of fluid in the right hemiscrotum without johnnie hydrocele. Likely moderate to large hydrocele on the left measuring 5.8 x 4.4 x 1.8 cm. Mild complexity of the left hydrocele which may be related to proteinaceous debris. No obvious varicocele. IMPRESSION: Ultrasound study demonstrates the testicles to be grossly unremarkable. No evidence of testicular torsion or orchitis suggested. Epididymal cyst on the left suggested as described. Moderate to large left hydrocele. Mild complexity of the left hydrocele which may be related to proteinaceous debris. Final Dictated by: Patric Caceres MD Dictated DT/TM: 12/28/23 1:32 Signed (Electronic Signature): Patric Caceres MD 12/28/23 4:04 pm Technologist: PM [facility] Controlled Substances Agreem entson 12-23-2023 Controlled Substances Agreements [id number]#1.00O TGTIFF [facility] Vital Signs Date Time Vital Sign Value Performing Clinician Facility 10-19-2024 14:22-0500 Diastolic blood pressure 70 mm[Hg] lEiud WILLIAM [facility] 10-19-2024 14:22-0500 Mean blood pressure 83 mm[Hg] Eliud WILLIAM [facility] 10-19-2024 14:22-0500 Systolic blood pressure 110 mm[Hg] Eliud WILLIAM [facility] 10-19-2024 14:11-0500 Body temperature 97.7 [degF] Eliud WILLIAM [facility] 10-19-2024 14:11-0500 Diastolic blood pressure 58 mm[Hg] Eliud WILLIAM [facility] 10-19-2024 14:11-0500 Heart rate 65 /min Eliudharriet WILLIAM [facility] 10-19-2024 14:11-0500 Respiratory rate 16 /min Eliud WILLIAM [facility] 10-19-2024 14:11-0500 Systolic blood pressure 151 mm[Hg] Eliud WILLIAM [facility] 10-10-2024 10:28-0500 Body height 170.2 cm Benito Dolce DPM FACFAS Work Phone: [facility] 10-10-2024 10:28-0500 Body mass index (BMI) [Ratio] 23.02 kg/m2 Benito Dolce DPM FACFAS Work Phone: [facility] 10-10-2024 10:28-0500 Body weight 66.68 kg Benito Dolce DPM FACFAS Work Phone: [facility] 09-26-2024 13:27-0500 Blood Pressure Location [facility] 09-26-2024 13:27-0500 Diastolic blood pressure 64 mm[Hg] Yodit Orzech [facility] 09-26-2024 13:27-0500 Heart rate 70 /min Yodit Orzech [facility] 09-26-2024 13:27-0500 Systolic blood pressure 124 mm[Hg] Yodit Orzech [facility] 07-25-2024 12:15-0500 Body height 170.2 cm Benito Dolce DPM FACFAS Work Phone: [facility] 07-25-2024 12:15-0500 Body mass index (BMI) [Ratio] 23.1 kg/m2 Benito Dolce DPM FACFAS Work Phone: [facility] 07-25-2024 12:15-0500 Body weight 66.9 kg Benito Dolce DPM FACFAS Work Phone: [facility] 05-18-2024 10:30-0400 Diastolic blood pressure 78 mm[Hg] Eliud WILLIAM [facility] 05-18-2024 10:30-0400 Heart rate 60 /min Eliud WILLIAM [facility] 05-18-2024 10:30-0400 Systolic blood pressure 110 mm[Hg] Eliud WILLIAM [facility] 06-19-2022 12:52-0400 Body weight 0 kg MD Hu Gomez Work Phone: [facility] Encounters Encounter Date Encounter Type Care Provider Facility Start: 12-21-2024 ambulatory Eliud Cabrales ty:[facility] Start: 11-24-2024 ambulatory Eliud Partidai ty:[id number] Start: 11-02-2024 End: 11-02-2024 ambulatory Eliud WILLIAM Facility:[facility] Start: 11-02-2024 End: 11-02-2024 Patient encounter procedure Eliud WILLIAM [facility] Start: 10-19-2024 End: 10-19-2024 ambulatory Eliud WILLIAM [place] [place] Start: 10-19-2024 End: 10-19-2024 Patient encounter procedure Eliud WILLIAM [facility] Start: 10-19-2024 End: 10-19-2024 ambulatory Eliud WILLIAM Facility:[facility] Start: 10-19-2024 End: 10-19-2024 Patient encounter procedure Eliud WILLIAM [facility] [place] Start: 10-10-2024 End: 10-10-2024 Bamboo flowsheet Benito R Dolce DPM FACFAS Work Phone: [facility] Start: 10-10-2024 End: 10-10-2024 Bamboo flowsheet Benito R Dolce DPM FACFAS Work Phone: [facility] Start: 10-10-2024 End: 10-10-2024 Patient encounter procedure Benito R Dolce DPM FACFAS Work Phone: [facility] Comment on above: Tinea unguium (Prima ry Dx); Type 2 diabetes mellitus with peripheral neuropathy (CMS/HCC); Pain in left toe(s); Pain in right toe(s) Start: 10-10-2024 End: 10-10-2024 ambulatory BENITO R DOLCE Not Available Start: 10-03-2024 ambulatory RIGOBERTO Hernandez y:[facility] Start: 09-28-2024 End: 09-28-2024 Patient encounter procedure Rigoberto Gonzalez DO Work Phone: [facility] [place] Work Phone: Start: 09-28-2024 End: 09-28-2024 ambulatory Rigoberto House DO Work Phone: [facility] Work Phone: Start: 09-26-2024 End: 09-26-2024 ambulatory Yodit X Orkatiuskach Facility:[facility] Start: 09-26-2024 End: 09-26-2024 Patient encounter procedure Yodit X Orzech [facility] Start: 09-21-2024 ambulatory RIGOBERTO P HOUSE Facilit y:[facility] Start: 09-07-2024 End: 09-07-2024 ambulatory RIGOBERTO P HOUSE Facility:[facility] [place] Start: 08-22-2024 End: 08-22-2024 ambulatory RIGOBERTO P HOUSE Facility:[facility] [place] Start: 07-25-2024 End: 07-25-2024 Bamboo flowsheet Benito R Dolce DPM FACFAS Work Phone: [facility] Start: 07-25-2024 End: 07-25-2024 Bamboo flowsheet Benito R Dolce DPM FACFAS Work Phone: [facility] Start: 07-25-2024 End: 07-25-2024 ambulatory BENITO R DOLCE Not Available Start: 07-25-2024 End: 07-25-2024 Office outpatient new 30 minutes Benito R Dolce DPM FACFAS Work Phone: [facility] Comment on above: Type 2 diabetes madeline itus with peripheral neuropathy (CMS/HCC) (Primary Dx); Tinea unguium; Pain in left toe(s); Pain in right toe(s); Tinea pedis due to epidermophyton Start: 06-20-2024 End: 06-20-2024 ambulatory DO RIGOBERTO P HOUSE Facility:[facility] Start: 05-18-2024 End: 05-18-2024 ambulatory RIGOBERTO P HOUSE Facility:[facility] Start: 05-18-2024 End: 05-18-2024 Patient encounter procedure Eliud WILLIAM [facility] Start: 05-06-2024 End: 05-06-2024 Bamboo flowsheet Cachorro Prado DO Work Phone: [facility] Start: 05-06-2024 End: 05-06-2024 Bamboo flowsheet Cachorro Prado DO Work Phone: [facility] Start: 05-06-2024 End: 05-06-2024 ambulatory CACHORRO PRADO Not Available Start: 05-06-2024 End: 05-06-2024 Office outpatient visit 10 minutes Cachorro Prado DO Work Phone: [facility] Comment on above: Olecranon bursitis, right elbow (Primary Dx) Start: 03-22-2024 End: 03-22-2024 ambulatory ACRA B APLING Not Available Start: 03-21-2024 End: 03-21-2024 ambulatory DO RIGOBERTO P HOUSE Facility:[facility] Start: 02-23-2024 End: 02-23-2024 ambulatory CARA B APLING Not Available Start: 02-09-2024 End: 02-09-2024 ambulatory CARA B APLING Not Available Start: 02-03-2024 ambulatory RIGOBERTO HOUSE Facility: [facility] Start: 02-02-2024 End: 02-02-2024 ambulatory DO RIGOBERTO P HOUSE Facility:[facility] Start: 12-28-2023 End: 12-28-2023 ambulatory DO RIGOBERTO P HOUSE Facility:[facility] Start: 12-21-2023 End: 12-21-2023 ambulatory DO RIGOBERTO P HOUSE Facility:[facility] Start: 09-17-2022 End: 09-17-2022 Admission to same day surgery center MD Hu Gomez Work Phone: [facility] Work Phone: Start: 09-17-2022 End: 09-17-2022 ambulatory MD Hu Gomez Work Phone: [facility] Work Phone: Procedures Date Procedure Procedure Detail Performing Clinician Start: 09-28-2024 US, scrotum Rigoberto Kumar use DO Work Phone: Start: 09-10-2018 Hernia repair Eliud EMERY Tonsillectomy Eliudharriet WILLIAM Plan of Treatment Date Care Activity Detail Author Start: 12-12-2024 End: 12-12-2024 Patient encounter procedure 12/12/2024 10:30 AM EDT Office Visit [facility] [address] [place] [address] Benito Garcia, DPM FACFAS [address] [place] [address] [facility] Start: 10-10-2024 End: 10-10-2024 Patient encounter procedure [facility] Comment on above: Arrived Start: 1970 Screening for malign ant neoplasm of colon [facility] Immunizations Immunization Date Immunization Notes Care Provider [facility] 06-20-2024 influenza virus vaccine, unspecified formulation Eliud WILLIAM [facility] 03-05-2021 SARS-CoV-2 (COVID-19 ) mRNA-1273 vaccine Eliud WILLIAM [facility] 02-05-2021 SARS-CoV-2 (COVID-19 ) mRNA-1273 vaccine Eliud WILLIAM [facility] 01-28-2018 tetanus toxoid, redu tree diphtheria toxoid, and acellular pertussis vaccine, adsorbed MD Hu Gomez Work Phone: [facility] Payers Date Payer Category Payer Self-pay [id number] 2023 Private Health Insurance [employer] [id number] 2023 Unknown [employer] [id number] 2023-Present [address] [place] [address] [id number] 2022 Unknown [id number] 2014 Unknown [id number] 1970 Unknown [id number] 2.840.1.697129.3.579.2 .1258 1969 Unknown [id number] 2.840.1.945472.3.579.2 .1258 1969 Unknown [id number] 2.840.1.722473.3.579.2 .1258 1969 Unknown [id number] 2.16840.1.861059.3.579.2 .1258 1969 Unknown [id number] 2.16840.1.455026.3.579.2 .1258 1969 Unknown [id number] 2.16840.1.590903.3.579.2 .1258 1969 Unknown [id number] 2.16840.1.800500.3.579.2 .1258 1969 Unknown [id number] 2.16840.1.388858.3.579.2 .1969 Unknown [id number] 2.16.840.1.171825.3.579.2 1969 Unknown [id number] 2.16.840.1.558803.3.579.2 1969 Unknown [id number] 2.16.840.1.029732.3.579.2 1969 Unknown [id number] 2.16.840.1.560439.3.579.2 1969 Unknown [id number] 2.16.840.1.102420.3.579.2 1969 Unknown [id number] 2.16.840.1.138533.3.579.2 1969 Unknown [id number] 2.16.840.1.324382.3.579.2 1969 Unknown [id number] 2.16.840.1.912887.3.579.2 1969 Unknown [id number] 2.16.840.1.046656.3.579.2 1969 Unknown [id number] 2.16.840.1.410155.3.579.2 1969 Unknown [id number] 2.16.840.1.722064.3.579.2 1969 Unknown [id number] 2.16.840.1.463945.3.579.2 1969 Unknown [id number] 2.16.840.1.727336.3.579.2 1969 Unknown [id number] 2.16.840.1.793566.3.579.2 1969 Unknown [id number] 2.16.840.1.697058.3.579.2 Private Health Insurance [facility] [id number] Unknown [employer]/BS [id number] Unknown [id number] 2.16.840.1.653216.3.579.2 .531 Worker's Compensation [id number] Social History Date Type Detail Facility Start: 01-28-2018 End: 10-19-2024 Tobacco smoking status NHIS Ex-smoker (finding) [facility] Start: 1970 Sex Assigned At Male F [facility] History of tobacco use Current smoker [facility] History of tobacco use Cigarette Smoker [facility] Start: 02-09-2024 Tobacco use and exposure Smokeless tobacco non-user [facility] Start: 05-06-2024 End: 10-10-2024 Alcoholic beverage intake Ex-drinker (finding) [facility] Start: 05-06-2024 End: 07-25-2024 History of Social function [facility] Start: 05-06-2024 End: 07-25-2024 Tobacco use panel [facility] Start: 1970 Sex assigned at Not on file [facility] Start: 05-18-2024 Tobacco smoking status Smokes tobacco daily (finding) [facility] Tobacco smoking status Never [facility] Start: 09-26-2024 Tobacco smoking stat [facility] Never smoked tobacco (finding) [facility] Start: 09-29-2024 Sex Patient sex un known (finding) [facility] Functional Status Date Assessment Result Facility 10-19-2024 Functional Status N/A [facility] 09-26-2024 Functional Status N/A [facility] 05-18-2024 Functional Status N/A [facility] Clinical Notes 11-17-2023 to 11-14-2024 Benito Garcia DPM FACFAS - 10/10/2024 10:10 AM Aleah Garcia DPM FACFAS - 07/25/2024 12:00 PM Elliot Prado DO - 05/06/2024 10:15 AM EDT Note Date & Type Note Facility 11-14-2024 Note - From: RIGOBERTO GONZALEZ DO To: [facility] Clinical Pool ([facility]); Sent: 11/11/2024 20:30:13 EDT Subject: FW: Medication Management Due Date/Time: 11/12/2024 13:58:00 EDT Caller Name: SONIA AGUILAR, TAMAR Hilario; Caller Number: Leatha , M , B -------- From: [facility] To: RIGOBERTO GONZALEZ DO Sent: November 11, 2024 12:58:24 PM CDT Subject: Medication Management Due: November 12, 2024 12:16:14 AM CDT On Hold Pending Signature Dispensed Drug: gabapentin (gabapentin 400 mg oral capsule), TAKE 1 CAPSULE BY MOUTH THREE TIMES DAILY Quantity: 90 cap(s) Days Supply: 30 Refills: 0 Substitutions Allowed Notes from Pharmacy: -------- [facility] Sent: 11/14/2024 08:06:59 EDT Subject: FW: Medication Management Not Approved: proposed to provider gabapentin (Gabapentin 400 MG Oral Capsule) TAKE 1 CAPSULE BY MOUTH THREE TIMES DAILY Qty: 90 cap(s) Days Supply: 30 Refills: 0 Substitutions Allowed Route To Pharmacy - [facility] Signed by Shyanne Garcia [facility] 10-19-2024 Hospital Discharge instructions Patient Education 10/19/2024 14:45:09 Hydrocelectomy, Adult, Care After Hydrocelectomy, Adult, Care After The following information offers guidance on how to care for yourself after your procedure. Your health care provider may also give you more specific instructions. If you have problems or questions, contact your health care provider. What can I expect after the procedure? After your procedure, it is common to have: Mild discomfort and swelling in the pouch that holds your testicles (scrotum). Bruising of the scrotum. Follow these instructions at home: Medicines Take asqq-vtx-opnbtqk and prescription medicines only as told by your health care provider. Ask your health care provider if the medicine prescribed to you: ?Requires you to avoid driving or using machinery. ?Can cause constipation. You may need to take these actions to prevent or treat constipation: ?Drink enough fluid to keep your urine pale yellow. ?Take erlr-ytm-epsmnnn or prescription medicines. ?Eat foods that are high in fiber, such as beans, whole grains, and fresh fruits and vegetables. ?Limit foods that are high in fat and processed sugars, such as fried or sweet foods. Bathing Do not take baths, swim, or use a hot tub until your health care provider approves. Ask your health care provider if you may take showers. You may only be allowed to take sponge baths. If you were told to wear an athletic support strap (scrotal support), keep it dry. Take it off when you shower or bathe. Incision care Follow instructions from your health care provider about how to take care of your incision. Make sure you: ?Wash your hands with soap and water for at least 20 seconds before and after you change your bandage (dressing). If soap and water are not available, use hand degreaser. ?Change your dressing as told by your health care provider. ?Leave stitches (sutures), skin glue, or adhesive strips in place. These skin closures may need to stay in place for 2 weeks or longer. If adhesive strip edges start to loosen and curl up, you may trim the loose edges. Do not remove adhesive strips completely unless your health care provider tells you to do that. Check your incision and scrotum every day for signs of infection. Check for: ?More redness, swelling, or pain. ?Fluid or blood. ?Warmth. ?Pus or a bad smell. Managing pain and swelling If directed, put ice on the affected area. To do this: Put ice in a plastic bag. Place a towel between your skin and the bag. Leave the ice on for 20 minutes, 2 3 times per day. Remove the ice if your skin turns bright red. This is very important. If you cannot feel pain, heat, or cold, you have a greater risk of damage to the area. Activity Do not lift anything that is heavier than 10 lb (4.5 kg) until your health care provider says that it is safe. If you were given a sedative during the procedure, it can affect you for several hours. Do not drive or operate machinery until your health care provider says that it is safe. Ask your health care provider when it is safe to drive. Return to your normal activities as told by your health care provider. Ask your health care provider what activities are safe for you. General instructions Do not use any products that contain nicotine or tobacco. These products include cigarettes, chewing tobacco, and vaping devices, such as e-cigarettes. These can delay healing after surgery. If you need help quitting, ask your health care provider. If you were given a scrotal support, wear it as told by your health care provider. Keep all follow-up visits. This is important. If you had a drain put in during the procedure, you will need to have it removed at a follow-up visit. Contact a health care provider if: Your pain is not controlled with medicine. You have more redness, swelling, or pain around your scrotum. You have fluid or blood coming from your incision. Your incision feels warm to the touch. You have pus or a bad smell coming from your incision. You have a fever. Get help right away if: You develop shaking, chills, and a fever that is higher than 101.8 F (38.8 C). You have redness or swelling that starts at your scrotum and spreads outward to your whole groin. You develop swelling in your legs. You have difficulty breathing. These symptoms may be an emergency. Get help right away. Call 911. Do not wait to see if the symptoms will go away. Do not drive yourself to the hospital. Summary After a hydrocelectomy, it is common to have mild discomfort, swelling, and bruising. Do not take baths, swim, or use a hot tub until your health care provider approves. Ask your health care provider if you may take showers. If directed, put ice on the affected area to help with pain and swelling. Do not lift anything that is heavier than 10 lb (4.5 kg) until your health care provider says that it is safe. Return to your normal activities as told by your health care provider. If you were given a scrotal support, keep it dry. Wear the scrotal support as told by your health care provider. This information is not intended to replace advice given to you by your health care provider. Make sure you discuss any questions you have with your health care provider. Document Revised: 04/03/2022 Document Reviewed: 04/03/2022 [employer] Patient Education 2023 [employer]. 10/19/2024 14:45:05 Hydrocelectomy, Adult Hydrocelectomy, Adult A hydrocelectomy is a surgical procedure to remove a collection of fluid (hydrocele) from the scrotum. The scrotum is the pouch that holds the testicles. You may need to have this procedure if a hydrocele is causing painful swelling in your scrotum. Tell a health care provider about: Any allergies you have. All medicines you are taking, including vitamins, herbs, eye drops, creams, and jbvc-hjw-qrvlzec medicines. Any problems you or family members have had with anesthetic medicines. Any bleeding problems you have. Any surgeries you have had. Any medical conditions you have. What are the risks? Generally, this is a safe procedure. However, problems may occur, including: Bleeding into the scrotum (scrotal hematoma). Damage to nearby structures or organs, including to the testicle or the tube that carries sperm out of the testicle (vas deferens). Infection. Allergic reactions to medicines. What happens before the procedure? When to stop eating and drinking Follow instructions from your health care provider about what you may eat and drink before your procedure. These may include: 8 hours before your procedure ?Stop eating most foods. Do not eat meat, fried foods, or fatty foods. ?Eat only light foods, such as toast or crackers. ?All liquids are okay except energy drinks and alcohol. 6 hours before your procedure ?Stop eating. ?Drink only clear liquids, such as water, clear fruit juice, black coffee, plain tea, and sports drinks. ?Do not drink energy drinks or alcohol. 2 hours before your procedure ?Stop drinking all liquids. ?You may be allowed to take medicines with small sips of water. If you do not follow your health care provider's instructions, your procedure may be delayed or canceled. Medicines Ask your health care provider about: Changing or stopping your regular medicines. This is especially important if you are taking diabetes medicines or blood thinners. Taking medicines such as aspirin and ibuprofen. These medicines can thin your blood. Do not take these medicines unless your health care provider tells you to take them. Taking rtfl-obv-librkhs medicines, vitamins, herbs, and supplements. Surgery safety Ask your health care provider: How your surgery site will be marked. What steps will be taken to help prevent infection. These steps may include: ?Removing hair at the surgery site. ?Washing skin with a germ-killing soap. ?Taking antibiotic medicine. General instructions Do not use any products that contain nicotine or tobacco for at least 4 weeks before the procedure. These products include cigarettes, chewing tobacco, and vaping devices, such as e-cigarettes. If you need help quitting, ask your health care provider. If you will be going home right after the procedure, plan to have a responsible adult: ?Take you home from the hospital or clinic. You will not be allowed to drive. ? Care for you for the time you are told. What happens during the procedure? An IV will be inserted into one of your veins. You will be given one or both of the following: ?A medicine to make you relax (sedative). ?A medicine to make you fall asleep (general anesthetic). A small incision will be made through the skin of your scrotum. Your testicle and the hydrocele will be located, and the hydrocele sac will be opened with an incision. The fluid will be drained from the hydrocele. Part of the hydrocele sac may be removed. The hydrocele will be closed with stitches that dissolve (absorbable sutures). This prevents fluid from building up again. If your hydrocele is large, you may have a thin, rubber drain placed to allow fluid to drain after the procedure. The incision in your scrotum will be closed with absorbable sutures, skin glue, or adhesive strips. A bandage (dressing) will be placed over the incision. The dressing may be held in place with an athletic support strap (scrotal support). The procedure may vary among health care providers and hospitals. What happens after the procedure? Your blood pressure, heart rate, breathing rate, and blood oxygen level will be monitored until you leave the hospital or clinic. You will be given pain medicine as needed. Your IV will be removed, and your insertion site will be checked for bleeding. You may need to wear a scrotal support. This holds the dressing in place and supports your scrotum. If you were given a sedative during the procedure, it can affect you for several hours. Do not drive or operate machinery until your health care provider says that it is safe. Summary A hydrocelectomy is a surgical procedure to remove a collection of fluid from the scrotum. You may need to have this procedure if a hydrocele is causing painful swelling in your scrotum. During the procedure, the hydrocele will be drained and then closed with stitches that dissolve (absorbable sutures). This prevents fluid from building up again. If your hydrocele is large, you may have a thin, rubber drain placed to allow fluid to drain after the procedure. You may need to wear a scrotal support after your procedure. This holds the dressing in place and supports your scrotum. This information is not intended to replace advice given to you by your health care provider. Make sure you discuss any questions you have with your health care provider. Document Revised: 04/03/2022 Document Reviewed: 04/03/2022 [employer] Patient Education 2023 [employer]. 10/19/2024 14:45:04 Hydrocele, Adult Hydrocele, Adult A hydrocele is a collection of fluid in the loose pouch of skin that holds the testicles (scrotum). It can occur in one or both testicles. This may happen because: The amount of fluid produced in the scrotum is not absorbed by the rest of the body. Fluid from the abdomen fills the scrotum. Normally, the testicles develop in the abdomen and then drop into the scrotum before . The tube that the testicles travel through usually closes after the testicles drop. If the tube does not close, fluid from the abdomen can fill the scrotum. This is not very common in adults. What are the causes? A hydrocele may be caused by: An injury to the scrotum. An infection. Decreased blood flow to the scrotum. Twisting of a testicle (testicular torsion). A defect. A tumor or cancer of the testicle. Sometimes, the cause is not known. What are the signs or symptoms? A hydrocele feels like a water-filled balloon. It may also feel heavy. Other symptoms include: Swelling of the scrotum. The swelling may decrease when you lie down. You may also notice more swelling at night than in the morning. This is called a communicating hydrocele, in which the fluid in the scrotum goes back into the abdominal cavity when the position of the scrotum changes. Swelling of the groin. Mild discomfort in the scrotum. Pain. This can develop if the hydrocele was caused by infection or twisting. The larger the hydrocele, the more likely you are to have pain. Swelling may also cause pain. How is this diagnosed? This condition may be diagnosed based on a physical exam and your medical history. You may also have tests, including: Imaging tests, such as an ultrasound. A transillumination test. This test takes place in a dark room where a light is placed on the skin of the scrotum. Clear liquid will not impede the light and the scrotum will be illuminated. This helps a health care provider distinguish a hydrocele from a tumor. Blood or urine tests. How is this treated? Most hydroceles go away on their own. If you have no discomfort or pain, your health care provider may suggest close monitoring of your condition until the condition goes away or symptoms develop. This is called watch and wait or watchful waiting. If treatment is needed, it may include: Treating an underlying condition. This may include taking an antibiotic medicine to treat an infection. Having surgery to stop fluid from collecting in the scrotum. Having surgery to drain the fluid. Surgery may include: ?Hydrocelectomy. For this procedure, an incision is made in the scrotum to remove the fluid. ?Needle aspiration. A needle is used to drain fluid. However, the fluid buildup will come back quickly and may lead to an infection of the scrotum. This is rarely done. Follow these instructions at home: Medicines Take bvbz-pvp-cgremfm and prescription medicines only as told by your health care provider. If you were prescribed an antibiotic medicine, take it as told by your health care provider. Do not stop taking the antibiotic even if you start to feel better. General instructions Watch the hydrocele for any changes. Keep all follow-up visits. This is important. Contact a health care provider if: You notice any changes in the hydrocele. The swelling in your scrotum or groin gets worse. The hydrocele becomes red, firm, painful, or tender to the touch. You have a fever. Get help right away if you: Develop a lot of pain or your pain becomes worse. Have chills. Have a high fever. Summary A hydrocele is a collection of fluid in the loose pouch of skin that holds the testicles (scrotum). A hydrocele can cause swelling, discomfort, and pain. In adults, the cause of a hydrocele may not be known. However, it is sometimes caused by an infection or the twisting of a testicle. Hydroceles often go away on their own. If a hydrocele causes pain, treating the underlying cause may be needed to ease the pain. This information is not intended to replace advice given to you by your health care provider. Make sure you discuss any questions you have with your health care provider. Document Revised: 04/03/2022 Document Reviewed: 04/03/2022 [employer] Patient Education 2023 [employer]. Follow Up Care 05/18/2024 11:36:08 With:RACHEL MODOY, Eliud Liu, URL Address: [facility] [address] , [place] [address]- When: Unknown [facility] 10-19-2024 Note Patient Education Urology Hydrocelectomy, Adult, Care After The following information offers guidance on how to care for yourself after your procedure. Your health care provider may also give you more specific instructions. If you have problems or questions, contact your health care provider. What can I expect after the procedure? After your procedure, it is common to have: ??? Mild discomfort and swelling in the pouch that holds your testicles (scrotum). ??? Bruising of the scrotum. Follow these instructions at home: Medicines ??? Take ufpm-xnr-bkuvwjs and prescription medicines only as told by your health care provider. ??? Ask your health care provider if the medicine prescribed to you: ? Requires you to avoid driving or using machinery. ? Can cause constipation. You may need to take these actions to prevent or treat constipation: ? Drink enough fluid to keep your urine pale yellow. ? Take [id number]-[id number] or prescription medicines. ? Eat foods that are high in fiber, such as beans, whole grains, and fresh fruits and vegetables. ? Limit foods that are high in fat and processed sugars, such as fried or sweet foods. Bathing ??? Do not take baths, swim, or use a hot tub until your health care provider approves. Ask your health care provider if you may take showers. You may only be allowed to take sponge baths. ??? If you were told to wear an athletic support strap (scrotal support), keep it dry. Take it off when you shower or bathe. Incision care ??? Follow instructions from your health care provider about how to take care of your incision. Make sure you: ? Wash your hands with soap and water for at least 20 seconds before and after you change your bandage (dressing). If soap and water are not available, use hand degreaser. ? Change your dressing as told by your health care provider. ? Leave stitches (sutures), skin glue, or adhesive strips in place. These skin closures may need to stay in place for 2 weeks or longer. If adhesive strip edges start to loosen and curl up, you may trim the loose edges. Do not remove adhesive strips completely unless your health care provider tells you to do that. ??? Check your incision and scrotum every day for signs of infection. Check for: ? More redness, swelling, or pain. ? Fluid or blood. ? Warmth. ? Pus or a bad smell. Managing pain and swelling If directed, put ice on the affected area. To do this: ??? Put ice in a plastic bag. ??? Place a towel between your skin and the bag. ??? Leave the ice on for 20 minutes, 2?3 times per day. ??? Remove the ice if your skin turns bright red. This is very important. If you cannot feel pain, heat, or cold, you have a greater risk of damage to the area. Activity ??? Do not lift anything that is heavier than 10 lb (4.5 kg) until your health care provider says that it is safe. ??? If you were given a sedative during the procedure, it can affect you for several hours. Do not drive or operate machinery until your health care provider says that it is safe. ??? Ask your health care provider when it is safe to drive. ??? Return to your normal activities as told by your health care provider. Ask your health care provider what activities are safe for you. General instructions ??? Do not use any products that contain nicotine or tobacco. These products include cigarettes, chewing tobacco, and vaping devices, such as e-cigarettes. These can delay healing after surgery. If you need help quitting, ask your health care provider. ??? If you were given a scrotal support, wear it as told by your health care provider. ??? Keep all follow-up visits. This is important. If you had a drain put in during the procedure, you will need to have it removed at a follow-up visit. Contact a health care provider if: ??? Your pain is not controlled with medicine. ??? You have more redness, swelling, or pain around your scrotum. ??? You have fluid or blood coming from your incision. ??? Your incision feels warm to the touch. ??? You have pus or a bad smell coming from your incision. ??? You have a fever. Get help right away if: ??? You develop shaking, chills, and a fever that is higher than 101.8?F (38.8?C). ??? You have redness or swelling that starts at your scrotum and spreads outward to your whole groin. ??? You develop swelling in your legs. ??? You have difficulty breathing. These symptoms may be an emergency. Get help right away. Call 911. ??? Do not wait to see if the symptoms will go away. ??? Do not drive yourself to the hospital. Summary ??? After a hydrocelectomy, it is common to have mild discomfort, swelling, and bruising. ??? Do not take baths, swim, or use a hot tub until your health care provider approves. Ask your health care provider if you may take showers. ??? If directed, put ice on the affected area to help with pain and swelling. ??? Do not (more content not included)... [facility] 10-10-2024 History of Present illness Narrative Images from the original note were not included. patient: Tamar Bautista : 1970 PCP: Rigoberto Gonzalez MD SUBJECTIVE This is a 54 y.o. male diabetic patient presents today chief complaint of painful elongated nails digits 1 through 10 the cause marked limitation in ambulation due to pain and pressure from shoe gear. The patient states he has been attempting to control his blood glucose levels with regular visits to his primary care physician. Allergies: Allergies Allergen Reactions Charentais Melon ([place] Melon) Other Reaction(s): Throat irritation Shrimp (Diagnostic) Other Reaction(s): Throat irritation Past Medical History: Past Medical History: Diagnosis Date Anxiety Arthritis Asthma (CMS/HCC) BPH (benign prostatic hyperplasia) BPV (benign positional vertigo) Diabetes ([facility]) Hypertensive disorder ([facility]) Medications: Current Outpatient Medications: albuterol 108 (90 Base) MCG/ACT inhaler, every 6 (six) hours, Disp: , Rfl: amLODIPine (Norvasc) 10 MG tablet, 1 tab(s), Oral, Daily, # 90 tab(s), 1 Refill(s), Pharmacy: [facility] [id number], TAKE 1 TABLET BY MOUTH DAILY, 170.18, cm, 09/21/23 10:22:00 EST, Height, 71, kg, 09/21/23 10:29:00 EST, Weight Dosing, Disp: , Rfl: atorvastatin (Lipitor) 10 MG tablet, 1 tab(s), Oral, Daily, # 30 tab(s), 5 Refill(s), Pharmacy: [facility] [id number], 1 tab(s) Oral Daily, 170.18, cm, 06/18/23 10:07:00 EDT, Height, Disp: , Rfl: budesonide-formoterol (Symbicort) 160-4.5 MCG/ACT inhaler, every 12 (twelve) hours, Disp: , Rfl: diclofenac (Voltaren) 75 MG EC tablet, 75 mg, Disp: , Rfl: doxycycline (Vibramycin) 100 MG capsule, Take 100 mg by mouth, Disp: , Rfl: gabapentin (Neurontin) 400 MG capsule, Take 400 mg by mouth in the morning and 400 mg in the evening and 400 mg before bedtime., Disp: , Rfl: glimepiride (Amaryl) 2 MG tablet, 0.5 tab(s), Oral, Daily, # 30 tab(s), 5 Refill(s), Pharmacy: [facility] [id number], TAKE 1/2 TABLET BY MOUTH DAILY, 170.18, cm, 09/21/23 10:22:00 EST, Height, 71, kg, 09/21/23 10:29:00 EST, Weight Dosing, Disp: , Rfl: HYDROcodone-acetaminophen ([place]) 5-325 MG tablet, every 6 (six) hours, Disp: , Rfl: HYDROcodone-acetaminophen ([place]) 5-325 MG tablet, 1 tab(s), PO, HS, # 30 tab(s), 0 Refill(s), Pharmacy: [id number], 1 tab(s) Oral HS,x30 day(s), 170.18, cm, 10/03/24 10:26:00 EST, Height, 66.9, kg, 03/21/24 10:19:00 EDT, Weight Dosing, Disp: , Rfl: metFORMIN (Glucophage) 500 MG tablet, 500 mg, Disp: , Rfl: sertraline (Zoloft) 100 MG tablet, 1.5 tab(s), Oral, Daily, # 135 tab(s), 1 Refill(s), Pharmacy: [facility] [id number], TAKE 1 AND 1/2 TABLET BY MOUTH DAILY, 170.18, cm, 09/21/23 10:22:00 EST, Height, 71, kg, 09/21/23 10:29:00 EST, Weight Dosing, Disp: , Rfl: tadalafil (Cialis) 20 MG tablet, Take 20 mg by mouth Daily, Disp: , Rfl: tamsulosin (Flomax) 0.4 MG 24 hr capsule, 1 cap(s), Oral, Daily, # 30 cap(s), 5 Refill(s), Pharmacy: [facility] [id number], TAKE 1 CAPSULE BY MOUTH DAILY, 170.18, cm, 12/21/23 10:11:00 EDT, Height, 67.95, kg, 12/21/23 10:18:00 EDT, Weight Dosing, Disp: , Rfl: terazosin (Hytrin) 5 MG capsule, 5 mg, Disp: , Rfl: Review of systems: Constitutional: Denies fever, chills, nausea, vomiting GI: Denies abdominal pain, cramping, loose stool, gastric ulcers Musculoskeletal: Denies low back pain, knee pain, systemic arthritis Neurologic: Denies burning, tingling, transient paralysis OBJECTIVE Physical Examination: DERM: Positive hair growth to b/l feet with good skin turgor noted. Negative openings in skin. No macerations noted interdigitally. Web spaces were clean and dry. No ulcerations were noted. Nails 1 through 10 were thickened elongated yellow and crumbly with subungual debris. They were painful to palpation [id number] on the right [id number] on the left. VASC: DP /PT were nonpalpable bilateral. Capillary refill time < 3 seconds Digits 1-5 bilateral NEURO: Winton Leslie 5.07 monofilament was diminished B/L. Vibratory sensation was diminished b/l. Mild peripheral neuropathy noted in a stocking-glove orientation Musculoskeletal: Muscle strength was +5 over 5 all intrinsic and extrinsic muscles tested. Radiographs: AP/MO/LAT: Diagnostic ultrasound: ASSESSMENT 1. Tinea unguium 2. Type 2 diabetes mellitus with peripheral neuropathy (CMS/HCC) 3. Pain in left toe(s) 4. Pain in right toe(s) PLAN The patient was educated on proper diabetic foot care. There educated on the etiology of onychomycosis. Also educated on performing regular inspections of the feet. We discussed routine visits to her primary care physician to monitor the glucose levels as well. Today the nails were debrided both in length and thickness 1 through 10. Patient was educated on the increased risk for foot complications due to neuropathy, poor circulation, and delayed wound healing. Proper foot care is essential to prevent ulcers, infections, and potential amputations. The following recommendation given to the patient guarding diabetic foot care: 1. Daily Foot Inspection Check for cuts, sores, blisters, redness, swelling, or signs of infection. Use a mirror or seek assistance if unable to see the bottom of the feet. 2. Hygiene Wash feet daily with warm (not hot) water and mild soap. Dry thoroughly, especially between toes, to prevent fungal infections. 3. Moisturizing Apply moisturizer to prevent dryness and cracking, avoiding areas between toes. 4. Nail Care Patients should have their nails trimmed only by a patent chemist to reduce the risk of injury or complications. 5. Footwear Wear well-fitting, cushioned shoes that protect feet from injury. Avoid walking barefoot, even indoors. 6. Blood Sugar Control Maintain optimal blood sugar levels to promote circulation and healing. 7. Regular Monitoring by a Healthcare Provider Schedule regular foot exams by a provider to detect early signs of complications. Report any new foot issues immediately for timely intervention. LISBETH Johnson documented in this encounter [facility] 09-28-2024 Radiology Diagnostic study note [facility] [address] Ultrasound Report Signed Patient: Tamar Bautista MR#: [id number] : 1970 Acct:[id number] Age/Sex: 54 / M ADM Date: 5 Loc: Room: Type: [facility] Attending Dr: Yodit CARTAGENA Ordering Provider: OSIEL Sanders Date of Service: 09/28/24 US/US scrotum: N50.89 Copies to: OSIEL Sanders~ Scrotal ultrasound HISTORY: Left testicular swelling for 3 weeks COMPARISON: None RIGHT testicle measures 4.2 x 2.2 x 2.5 cm. LEFT testicle measures 4.8 x 2.9 x 2.4 cm. No testicular mass or microcalcifications identified. Normal color flow of both testicles identified. RIGHT epididymal head measures 1.2 cm. Contains complex 8mm cyst in the epididymal head region.. LEFT epididymal head measures 9 mm. . Left hydrocele present. No scrotal wall abnormality identified. US/US scrotum IMPRESSION: Left hydrocele. Normal testicles. Right epididymal head by the complex 8mm cyst versus hematocele. Impression dictated by: Willam Guevara M.D.09/28/2024 4:47 PM Dictation Location: [facility]20 Tech: Kylie Gibbs Transcribed By: VALERIE 09/28/241646 Dictated By: Willam Guevara DO 09/28/241644 Signed By: 09/28/241646 [facility] 09-05-2024 Note Entered by RHIANNA GONZALEZ DO on September 05, 2024 08:07:37 EST From: RIGOBERTO GONZALEZ DO To: [facility] [id number] Sent: 09/05/2024 08:07:37 EST Subject: Medication Management Submitted: Complete:atorvastatin (atorvastatin 10 mg oral tablet) Signed by RIGOBERTO GONZALEZ DO 09/05/2024 08:07:00 EST Approved with modifications: atorvastatin (ATORVASTATIN 10 MG TABLET) TAKE 1 TABLET BY MOUTH DAILY Qty: 90 tab(s) Days Supply: 90 Refills: 1 Substitutions Allowed Route To Pharmacy - [facility] [id number] -------- From: [facility] [id number] To: RIGOBERTO GONZALEZ DO Sent: September 03, 2024 6:00:33 AM OFFICE ANALYST Subject: Medication Management Due: September 04, 2024 12:11:43 AM OFFICE ANALYST On Hold Pending Signature Drug: atorvastatin (atorvastatin 10 mg oral tablet), TAKE 1 TABLET BY MOUTH DAILY Quantity: 30 tab(s) Days Supply: 0 Refills: 4 Substitutions Allowed Notes from Pharmacy: Dispensed Drug: atorvastatin (atorvastatin 10 mg oral tablet), TAKE 1 TABLET BY MOUTH DAILY Quantity: 90 tab(s) Days Supply: 90 Refills: 0 Substitutions Allowed Notes from Pharmacy: -------- [facility] 08-17-2024 Note - From: RIGOBERTO GONZALEZ DO To: [facility] Clinical Pool ([facility] Sent: 08/17/2024 07:27:46 EST Subject: FW: Medication Management Due Date/Time: 08/18/2024 06:31:00 EST Caller Name: TAMAR BAUTISTA SR; Caller Number: Leatha , M , B -------- From: [facility] [id number] To: RIGOBERTO GONZALEZ DO Sent: August 17, 2024 5:31:22 AM OFFICE ANALYST Subject: Medication Management Due: August 18, 2024 12:01:42 AM OFFICE ANALYST On Hold Pending Signature Drug: gabapentin (gabapentin 400 mg oral capsule), TAKE 1 CAPSULE BY MOUTH 3 TIMES A DAY Quantity: 90 cap(s) Days Supply: 0 Refills: 0 Substitutions Allowed Notes from Pharmacy: Dispensed Drug: gabapentin (gabapentin 400 mg oral capsule), TAKE 1 CAPSULE BY MOUTH 3 TIMES A DAY Quantity: 90 cap(s) Days Supply: 30 Refills: 0 Substitutions Allowed Notes from Pharmacy: -------- From: Shyanne Garcia To: [facility] [id number] Sent: 08/17/2024 09:05:54 EST Subject: FW: Medication Management Not Approved: proposed to provider gabapentin (GABAPENTIN 400 MG CAPSULE) TAKE 1 CAPSULE BY MOUTH 3 TIMES A DAY Qty: 90 cap(s) Days Supply: 30 Refills: 0 Substitutions Allowed Route To Pharmacy - [facility] [id number] Signed by Shyanne Garcia [facility] 08-01-2024 Note Entered by RHIANNA GONZALEZ DO on August 01, 2024 07:36:29 EST From: RIGOBERTO GONZALEZ DO To: [facility] [id number] Sent: 08/01/2024 07:36:29 EST Subject: Medication Management Submitted: Complete:sertraline (sertraline 100 mg oral tablet) Signed by RIGOBERTO GONZALEZ DO 08/01/2024 07:36:00 EST Approved with modifications: sertraline (SERTRALINE HCL 100 MG TABLET) TAKE 1 AND 1/2 TABLET BY MOUTH DAILY Qty: 135 tab(s) Days Supply: 90 Refills: 1 Substitutions [facility] [id number] -------- From: [facility] [id number] To: RIGOBERTO GONZALEZ DO Sent: August 01, 2024 5:30:31 AM OFFICE ANALYST Subject: Medication Management Due: August 02, 2024 12:06:56 AM OFFICE ANALYST On Hold Pending Signature Drug: sertraline (sertraline 100 mg oral tablet), TAKE 1 AND 1/2 TABLET BY MOUTH DAILY Quantity: 135 tab(s) Days Supply: 0 Refills: 0 Substitutions Allowed Notes from Pharmacy: Dispensed Drug: sertraline (sertraline 100 mg oral tablet), TAKE 1 AND 1/2 TABLET BY MOUTH DAILY Quantity: 135 tab(s) Days Supply: 90 Refills: 0 Substitutions Allowed Notes from Pharmacy: -------- [facility] 07-25-2024 History of Present illness Narrative Images from the original note were not included. patient: Tamar Bautista : 1970 PCP: Rigoberto Gonzalez MD SUBJECTIVE This is a 54 y.o. male diabetic patient presents today chief complaint of painful elongated nails digits 1 through 10 the cause marked limitation in ambulation due to pain and pressure from shoe gear. The patient states he has been attempting to control his blood glucose levels with regular visits to his primary care physician. Pt is c/o severe interdigital tinea. 4th webspace b/l and 1st on right Allergies: Allergies Allergen Reactions Charentais Melon ([place] Melon) Other Reaction(s): Throat irritation Shrimp (Diagnostic) Other Reaction(s): Throat irritation Past Medical History: Past Medical History: Diagnosis Date Anxiety Arthritis Asthma ([facility]) BPH (benign prostatic hyperplasia) BPV (benign positional vertigo) Diabetes ([facility]) Hypertensive disorder ([facility]) Medications: Current Outpatient Medications: albuterol 108 (90 Base) MCG/ACT inhaler, every 6 (six) hours, Disp: , Rfl: amLODIPine (Norvasc) 10 MG tablet, 1 tab(s), Oral, Daily, # 90 tab(s), 1 Refill(s), Pharmacy: [facility] [id number], TAKE 1 TABLET BY MOUTH DAILY, 170.18, cm, 09/21/23 10:22:00 EST, Height, 71, kg, 09/21/23 10:29:00 EST, Weight Dosing, Disp: , Rfl: atorvastatin (Lipitor) 10 MG tablet, 1 tab(s), Oral, Daily, # 30 tab(s), 5 Refill(s), Pharmacy: [facility] [id number], 1 tab(s) Oral Daily, 170.18, cm, 06/18/23 10:07:00 EDT, Height, Disp: , Rfl: budesonide-formoterol (Symbicort) 160-4.5 MCG/ACT inhaler, every 12 (twelve) hours, Disp: , Rfl: diclofenac (Voltaren) 75 MG EC tablet, 75 mg, Disp: , Rfl: gabapentin (Neurontin) 300 MG capsule, 300 mg, Disp: , Rfl: glimepiride (Amaryl) 2 MG tablet, 0.5 tab(s), Oral, Daily, # 30 tab(s), 5 Refill(s), Pharmacy: [facility] [id number], TAKE 1/2 TABLET BY MOUTH DAILY, 170.18, cm, 09/21/23 10:22:00 EST, Height, 71, kg, 09/21/23 10:29:00 EST, Weight Dosing, Disp: , Rfl: HYDROcodone-acetaminophen ([place]) 5-325 MG tablet, every 6 (six) hours, Disp: , Rfl: metFORMIN (Glucophage) 500 MG tablet, 500 mg, Disp: , Rfl: sertraline (Zoloft) 100 MG tablet, 1.5 tab(s), Oral, Daily, # 135 tab(s), 1 Refill(s), Pharmacy: [facility] [id number], TAKE 1 AND 1/2 TABLET BY MOUTH DAILY, 170.18, cm, 09/21/23 10:22:00 EST, Height, 71, kg, 09/21/23 10:29:00 EST, Weight Dosing, Disp: , Rfl: tadalafil (Cialis) 5 MG tablet, 1 tab(s), Oral, Daily, # 30 tab(s), 1 Refill(s), Pharmacy: [facility] [id number], TAKE 1 TABLET BY MOUTH DAILY, 170.18, cm, 09/21/23 10:22:00 EST, Height, 71, kg, 09/21/23 10:29:00 EST, Weight Dosing, Disp: , Rfl: tamsulosin (Flomax) 0.4 MG 24 hr capsule, 1 cap(s), Oral, Daily, # 30 cap(s), 5 Refill(s), Pharmacy: [facility] [id number], TAKE 1 CAPSULE BY MOUTH DAILY, 170.18, cm, 12/21/23 10:11:00 EDT, Height, 67.95, kg, 12/21/23 10:18:00 EDT, Weight Dosing, Disp: , Rfl: terazosin (Hytrin) 5 MG capsule, 5 mg, Disp: , Rfl: Review of systems: Constitutional: Denies fever, chills, nausea, vomiting GI: Denies abdominal pain, cramping, loose stool, gastric ulcers Musculoskeletal: Denies low back pain, knee pain, systemic arthritis Neurologic: Denies burning, tingling, transient paralysis OBJECTIVE Physical Examination: DERM: Positive hair growth to b/l feet with good skin turgor noted. Negative openings in skin. No macerations noted interdigitally. Web spaces were clean and dry. No ulcerations were noted. Severe maceration 4th webspace bilateral and 1st on the right Nails 1 through 10 were thickened elongated yellow and crumbly with subungual debris. They were painful to palpation 61405 on the right 14579 on the left. VASC: DP /PT were nonpalpable bilateral. Capillary refill time < 3 seconds Digits 1-5 bilateral NEURO: Winton Leslie 5.07 monofilament was diminished B/L. Vibratory sensation was diminished b/l. Mild peripheral neuropathy noted in a stocking-glove orientation Musculoskeletal: Muscle strength was +5 over 5 all intrinsic and extrinsic muscles tested. Radiographs: AP/MO/LAT: Diagnostic ultrasound: ASSESSMENT 1. Tinea unguium 2. Type 2 diabetes mellitus with peripheral neuropathy (CMS/HCC) 3. Pain in left toe(s) 4. Pain in right toe(s) 5. Tinea pedis due to epidermophyton PLAN The patient was educated on proper diabetic foot care. There educated on the etiology of onychomycosis. Also educated on performing regular inspections of the feet. We discussed routine visits to her primary care physician to monitor the glucose levels as well. Today the nails were debrided both in length and thickness 1 through 10. Patient was advised to take the oral Lamisil as prescribed 1 pill once a day for 14 days and was also dispensed iodine to do daily with a cotton ball 4th webspace bilateral and right 1st webspace. Patient was educated on the increased risk for foot complications due to neuropathy, poor circulation, and delayed wound healing. Proper foot care is essential to prevent ulcers, infections, and potential amputations. The following recommendation given to the patient guarding diabetic foot care: 1. Daily Foot Inspection Check for cuts, sores, blisters, redness, swelling, or signs of infection. Use a mirror or seek assistance if unable to see the bottom of the feet. 2. Hygiene Wash feet daily with warm (not hot) water and mild soap. Dry thoroughly, especially between toes, to prevent fungal infections. 3. Moisturizing Apply moisturizer to prevent dryness and cracking, avoiding areas between toes. 4. Nail Care Patients should have their nails trimmed only by a patent chemist to reduce the risk of injury or complications. 5. Footwear Wear well-fitting, cushioned shoes that protect feet from injury. Avoid walking barefoot, even indoors. 6. Blood Sugar Control Maintain optimal blood sugar levels to promote circulation and healing. 7. Regular Monitoring by a Healthcare Provider Schedule regular foot exams by a provider to detect early signs of complications. Report any new foot issues immediately for timely intervention. LISBETH Johnson documented in this encounter [facility] 07-19-2024 Note - From: RIGOBERTO GONZALEZ DO To: [facility] Clinical Pool ([facility]); Sent: 07/19/2024 07:29:33 EST Subject: FW: Medication Management Due Date/Time: 07/20/2024 06:29:00 EST Caller Name: SONIA AGUILAR, TAMAR Hilario; Caller Number: Leatha , M , B -------- [facility] [id number] To: RIGOBERTO GONZALEZ DO Sent: July 19, 2024 5:29:31 AM OFFICE ANALYST Subject: Medication Management Due: July 20, 2024 12:07:31 AM OFFICE ANALYST On Hold Pending Signature Drug: gabapentin (gabapentin 400 mg oral capsule), TAKE 1 CAPSULE BY MOUTH 3 TIMES A DAY Quantity: 90 cap(s) Days Supply: 0 Refills: 0 Substitutions Allowed Notes from Pharmacy: Dispensed Drug: gabapentin (gabapentin 400 mg oral capsule), TAKE 1 CAPSULE BY MOUTH 3 TIMES A DAY Quantity: 90 cap(s) Days Supply: 30 Refills: 0 Substitutions Allowed Notes from Pharmacy: -------- From: Shyanne Garcia To: [facility] [id number] Sent: 07/19/2024 07:57:57 EST Subject: FW: Medication Management Not Approved: Refill not appropriate, sent 07/18/2024 gabapentin (GABAPENTIN 400 MG CAPSULE) TAKE 1 CAPSULE BY MOUTH 3 TIMES A DAY Qty: 90 cap(s) Days Supply: 30 Refills: 0 Substitutions Allowed Route To Pharmacy - [facility] [id number] Signed by Shyanne Garica rx sent [facility] 07-18-2024 Note - From: RIGOBERTO GONZALEZ DO To: [facility] Clinical Pool ([facility] Sent: 07/17/2024 15:27:43 EST Subject: FW: Medication Management Due Date/Time: 07/18/2024 07:00:00 EST Caller Name: TAMAR BAUTISTA SR; Caller Number: Leatha , M , B -------- From: [facility] [id number] To: RIGOBERTO GONZALEZ DO Sent: July 17, 2024 6:00:56 AM OFFICE ANALYST Subject: Medication Management Due: July 18, 2024 1:12:12 AM OFFICE ANALYST On Hold Pending Signature Drug: gabapentin (gabapentin 400 mg oral capsule), TAKE 1 CAPSULE BY MOUTH 3 TIMES A DAY Quantity: 90 cap(s) Days Supply: 0 Refills: 0 Substitutions Allowed Notes from Pharmacy: Dispensed Drug: gabapentin (gabapentin 400 mg oral capsule), TAKE 1 CAPSULE BY MOUTH 3 TIMES A DAY Quantity: 90 cap(s) Days Supply: 30 Refills: 0 Substitutions Allowed Notes from Pharmacy: -------- From: Shyanne Garcia To: [facility] [id number] Sent: 07/18/2024 09:29:33 EST Subject: FW: Medication Management Not Approved: proposed to provider gabapentin (GABAPENTIN 400 MG CAPSULE) TAKE 1 CAPSULE BY MOUTH 3 TIMES A DAY Qty: 90 cap(s) Days Supply: 30 Refills: 0 Substitutions Allowed Route To Pharmacy - [facility] [id number] Signed by Shyanne Garcia [facility] [place] 06-08-2024 Note Entered by RHIANNA GONZALEZ DO on June 08, 2024 09:30:08 EDT From: RIGOBERTO GONZALEZ DO To: [facility] [id number] Sent: 06/08/2024 09:30:08 EDT Subject: Medication Management Submitted: Complete:metFORMIN (metFORMIN 500 mg oral tablet) Signed by RIGOBERTO GONZALEZ DO 06/08/2024 09:30:00 EDT Submitted: Complete:amLODIPine (amLODIPine 10 mg oral tablet) Signed by RIGOBERTO GONZALEZ DO 06/08/2024 09:30:00 EDT Approved with modifications: metFORMIN (METFORMIN HCL 500 MG TABLET) TAKE 1 TABLET BY MOUTH 2 TIMES A DAY Qty: 180 tab(s) Days Supply: 90 Refills: 1 Substitutions Allowed Route To Pharmacy - [facility] [id number] Approved with modifications: amLODIPine (amLODIPine BESYLATE 10MG TAB) TAKE 1 TABLET BY MOUTH DAILY Qty: 90 tab(s) Days Supply: 90 Refills: 1 Substitutions Allowed Route To Pharmacy - [facility] [id number] -------- From: [facility] [id number] To: RIGOBERTO GONZALEZ DO Sent: June 07, 2024 6:35:01 PM CDT Subject: Medication Management Due: June 08, 2024 12:20:44 AM CDT On Hold Pending Signature Drug: metFORMIN (metFORMIN 500 mg oral tablet), TAKE 1 TABLET BY MOUTH 2 TIMES A DAY Quantity: 180 tab(s) Days Supply: 0 Refills: 0 Substitutions Allowed Notes from Pharmacy: Dispensed Drug: metFORMIN (metFORMIN 500 mg oral tablet), TAKE 1 TABLET BY MOUTH 2 TIMES A DAY Quantity: 180 tab(s) Days Supply: 90 Refills: 0 Substitutions Allowed Notes from Pharmacy: On Hold Pending Signature Drug: amLODIPine (amLODIPine 10 mg oral tablet), TAKE 1 TABLET BY MOUTH DAILY Quantity: 90 tab(s) Days Supply: 0 Refills: 0 Substitutions Allowed Notes from Pharmacy: Dispensed Drug: amLODIPine (amLODIPine 10 mg oral tablet), TAKE 1 TABLET BY MOUTH DAILY Quantity: 90 tab(s) Days Supply: 90 Refills: 0 Substitutions Allowed Notes from Pharmacy: -------- [facility] [place] 05-18-2024 Hospital Discharge instructions Patient Education 05/18/2024 11:32:46 Epididymitis Epididymitis Epididymitis is inflammation or swelling of the epididymis. This is caused by an infection. The epididymis is a cord-like structure that is located along the top and back part of the testicle. It collects and stores sperm from the testicle. This condition can also cause pain and swelling of the testicle and scrotum. Symptoms usually start suddenly (acute epididymitis). Sometimes epididymitis starts gradually and lasts for a while (chronic epididymitis). Chronic epididymitis may be harder to treat. What are the causes? In men ages 20 40, this condition is usually caused by a bacterial infection or a sexually transmitted infection (STI), such as gonorrhea or chlamydia. In men 40 and older, this condition is usually caused by bacteria from a urinary blockage or from abnormalities in the urinary system. These can result from: Having a tube placed into the bladder (urinary catheter). Having an enlarged or inflamed prostate gland. Having recently had urinary tract surgery. Having a problem with a backward flow of urine (retrograde). In men who have a condition that weakens the body's defense system (immune system), such as human immunodeficiency virus (HIV), this condition can be caused by: Other bacteria, including tuberculosis and syphilis. Viruses. Fungi. Sometimes this condition occurs without infection. This may happen because of trauma or repetitive activities such as sports. What increases the risk? You are more likely to develop this condition if you have: Unprotected sex with more than one partner. Anal sex. Had recent surgery. A urinary catheter. Urinary problems. A suppressed immune system. What are the signs or symptoms? This condition usually begins suddenly with chills, fever, and pain behind the scrotum and in the testicle. Other symptoms include: Swelling of the scrotum, testicle, or both. Pain when ejaculating or urinating. Pain in the back or abdomen. Nausea. Itching and discharge from the penis. A frequent need to pass urine. Redness, increased warmth, and tenderness of the scrotum. How is this diagnosed? Your health care provider can diagnose this condition based on your symptoms and medical history. Your health care provider will also do a physical exam to check your scrotum and testicle for swelling, pain, and redness. You may also have other tests, including: Testing of discharge from the penis. Testing your urine for infections, such as STIs. Ultrasound to check for blood flow and inflammation. Your health care provider may test you for other STIs, including HIV. How is this treated? Treatment for this condition depends on the cause. If your condition is caused by a bacterial infection, oral antibiotic medicine may be prescribed. If the bacterial infection has spread to your blood, you may need to receive IV antibiotics. For both bacterial and nonbacterial epididymitis, you may be treated with: Rest. Elevation of the scrotum. Pain medicines. Anti-inflammatory medicines. Surgery may be needed if: You have pus buildup in the scrotum (abscess). You have epididymitis that has not responded to other treatments. Follow these instructions at home: Medicines Take swaw-ojs-pukfdnz and prescription medicines only as told by your health care provider. If you were prescribed an antibiotic medicine, take it as told by your health care provider. Do not stop taking the antibiotic even if your condition improves. Sexual activity If your epididymitis was caused by an STI, avoid sexual activity until your treatment is complete. Inform your sexual partner or partners if you test positive for an STI. They may need to be treated. Do not engage in sexual activity with your partner or partners until their treatment is completed. Managing pain and swelling If directed, raise (elevate) your scrotum and apply ice. To do this: ?Put ice in a plastic bag. ?Place a small towel or pillow between your legs. ?Rest your scrotum on the pillow or towel. ?Place another towel between your skin and the plastic bag. ?Leave the ice on for 20 minutes, 2 3 times a day. ?Remove the ice if your skin turns bright red. This is very important. If you cannot feel pain, heat, or cold, you have a greater risk of damage to the area. Keep your scrotum elevated and supported while resting. Ask your health care provider if you should wear a scrotal support, such as a jockstrap. Wear it as told by your health care provider. Try taking a sitz bath to help with discomfort. This is a warm water bath that is taken while you are sitting down. The water should come up to your hips and should cover your buttocks. Do this 3 4 times per day or as told by your health care provider. General instructions Drink enough fluid to keep your urine pale yellow. Return to your normal activities as told by your health care provider. Ask your health care provider what activities are safe for you. Keep all follow-up visits. This is important. Contact a health care provider if: You have a fever. Your pain medicine is not helping. Your pain is getting worse. Your symptoms do not improve within 3 days. Summary Epididymitis is inflammation or swelling of the epididymis. This is caused by an infection. This condition can also cause pain and swelling of the testicle and scrotum. Treatment for this condition depends on the cause. If your condition is caused by a bacterial infection, oral antibiotic medicine may be prescribed. Inform your sexual partner or partners if you test positive for an STI. They may need to be treated. Do not engage in sexual activity with your partner or partners until their treatment is completed. Contact a health care provider if your symptoms do not improve within 3 days. This information is not intended to replace advice given to you by your health care provider. Make sure you discuss any questions you have with your health care provider. Document Revised: 03/26/2022 Document Reviewed: 03/26/2022 [employer] Patient Education 2023 [employer]. 05/18/2024 11:19:46 Steps to Quit Smoking Steps to Quit Smoking Smoking tobacco is the leading cause of preventable . It can affect almost every organ in the body. Smoking puts you and those around you at risk for developing many serious chronic diseases. Quitting smoking can be very challenging. Do not get discouraged if you are not successful the first time. Some people need to make many attempts to quit before they achieve long-term success. Do your best to stick to your quit plan, and talk with your health care provider if you have any questions or concerns. How do I get ready to quit? When you decide to quit smoking, create a plan to help you succeed. Before you quit: Pick a date to quit. Set a date within the next 2 weeks to give you time to prepare. Write down the reasons why you are quitting. Keep this list in places where you will see it often. Tell your family, friends, and co-workers that you are quitting. Support from people you are close to can make quitting easier. Talk with your health care provider about your options for quitting smoking. Find out what treatment options are covered by your health insurance. Identify people, places, things, and activities that make you want to smoke (triggers). Avoid them. What first steps can I take to quit smoking? Throw away all cigarettes at home, at work, and in your car. Throw away smoking accessories, such as ashtrays and lighters. Clean your car. Make sure to empty the ashtray. Clean your home, including curtains and carpets. What strategies can I use to quit smoking? Talk with your health care provider about combining strategies, such as taking medicines while you are also receiving in-person counseling. Using these two strategies together makes you more likely to succeed in quitting than if you used either strategy on its own. If you are or , talk with your health care provider about finding counseling or other support strategies to quit smoking. Do not take medicine to help you quit smoking unless your health care provider tells you to. Quit right away Quit smoking completely, instead of gradually reducing how much you smoke over a period of time. Stopping smoking right away may be more successful than gradually quitting. Attend in-person counseling to help you build problem-solving skills. You are more likely to succeed in quitting if you attend counseling sessions regularly. Even short sessions of 10 minutes can be effective. Take medicine You may take medicines to help you quit smoking. Some medicines require a prescription. You can also purchase aoof-mnb-icvqcco medicines. Medicines may have nicotine in them to replace the nicotine in cigarettes. Medicines may: Help to stop cravings. Help to relieve withdrawal symptoms. Your health care provider may recommend: Nicotine patches, gum, or lozenges. Nicotine inhalers or sprays. Non-nicotine medicine that you take by mouth. Find resources Find resources and support systems that can help you quit smoking and remain smoke-free after you quit. These resources are most helpful when you use them often. They include: Online chats with a counselor. Telephone quitlines. Printed self-help materials. Support groups or group counseling. Text messaging programs. Mobile phone apps or applications. Use apps that can help you stick to your quit plan by providing reminders, tips, and encouragement. Examples of free services include Quit Guide from the CDC and smokefree.gov What can I do to make it easier to quit? Reach out to your family and friends for support and encouragement. Call telephone quitlines, such as 4-297-GNQW-NOW, reach out to support groups, or work with a counselor for support. Ask people who smoke to avoid smoking around you. Avoid places that trigger you to smoke, such as bars, parties, or smoke-break areas at work. Spend time with people who do not smoke. Lessen the stress in your life. Stress can be a smoking trigger for some people. To lessen stress, try: ?Exercising regularly. ?Doing deep-breathing exercises. ?Doing yoga. ?Meditating. What benefits will I see if I quit smoking? Over time, you should start to see positive results, such as: Improved sense of smell and taste. Decreased coughing and sore throat. Slower heart rate. Lower blood pressure. Clearer and healthier skin. The ability to breathe more easily. Fewer sick days. Summary Quitting smoking can be very challenging. Do not get discouraged if you are not successful the first time. Some people need to make many attempts to quit before they achieve long-term success. When you decide to quit smoking, create a plan to help you succeed. Quit smoking right away, not slowly over a period of time. Find resources and support systems that can help you quit smoking and remain smoke-free after you quit. This information is not intended to replace advice given to you by your health care provider. Make sure you discuss any questions you have with your health care provider. Document Revised: 08/08/2022 Document Reviewed: 08/08/2022 [employer]look Patient Education 2023 [employer] Follow Up Care 03/14/2024 13:45:44 With:RACHEL MOODY, Eliud Liu, URL Address: [facility] [address] , [place] [address] [phone] When: Unknown [facility] 05-18-2024 Note Patient Education Pulmonary Medicine Steps to Quit Smoking Smoking tobacco is the leading cause of preventable . It can affect almost every organ in the body. Smoking puts you and those around you at risk for developing many serious chronic diseases. Quitting smoking can be very challenging. Do not get discouraged if you are not successful the first time. Some people need to make many attempts to quit before they achieve long-term success. Do your best to stick to your quit plan, and talk with your health care provider if you have any questions or concerns. How do I get ready to quit? When you decide to quit smoking, create a plan to help you succeed. Before you quit: ? Pick a date to quit. Set a date within the next 2 weeks to give you time to prepare. ? Write down the reasons why you are quitting. Keep this list in places where you will see it often. ? Tell your family, friends, and co-workers that you are quitting. Support from people you are close to can make quitting easier. ? Talk with your health care provider about your options for quitting smoking. ? Find out what treatment options are covered by your health insurance. ? Identify people, places, things, and activities that make you want to smoke (triggers). Avoid them. What first steps can I take to quit smoking? ? Throw away all cigarettes at home, at work, and in your car. ? Throw away smoking accessories, such as ashtrays and lighters. ? Clean your car. Make sure to empty the ashtray. ? Clean your home, including curtains and carpets. What strategies can I use to quit smoking? Talk with your health care provider about combining strategies, such as taking medicines while you are also receiving in-person counseling. Using these two strategies together makes you more likely to succeed in quitting than if you used either strategy on its own. If you are or , talk with your health care provider about finding counseling or other support strategies to quit smoking. Do not take medicine to help you quit smoking unless your health care provider tells you to. Quit right away ? Quit smoking completely, instead of gradually reducing how much you smoke over a period of time. Stopping smoking right away may be more successful than gradually quitting. ? Attend in-person counseling to help you build problem-solving skills. You are more likely to succeed in quitting if you attend counseling sessions regularly. Even short sessions of 10 minutes can be effective. Take medicine You may take medicines to help you quit smoking. Some medicines require a prescription. You can also purchase ouxj-kbe-javptiv medicines. Medicines may have nicotine in them to replace the nicotine in cigarettes. Medicines may: ? Help to stop cravings. ? Help to relieve withdrawal symptoms. Your health care provider may recommend: ? Nicotine patches, gum, or lozenges. ? Nicotine inhalers or sprays. ? Non-nicotine medicine that you take by mouth. Find resources Find resources and support systems that can help you quit smoking and remain smoke-free after you quit. These resources are most helpful when you use them often. They include: ? Online chats with a counselor. ? Telephone quitlines. ? Printed self-help materials. ? Support groups or group counseling. ? Text messaging programs. ? Mobile phone apps or applications. Use apps that can help you stick to your quit plan by providing reminders, tips, and encouragement. Examples of free services include Quit Guide from the CDC and smokefree.gov What can I do to make it easier to quit? ? Reach out to your family and friends for support and encouragement. Call telephone quitlines, such as 8-612-DWMA-NOW, reach out to support groups, or work with a counselor for support. ? Ask people who smoke to avoid smoking around you. ? Avoid places that trigger you to smoke, such as bars, parties, or smoke-break areas at work. ? Spend time with people who do not smoke. ? Lessen the stress in your life. Stress can be a smoking trigger for some people. To lessen stress, try: ? Exercising regularly. ? Doing deep-breathing exercises. ? Doing yoga. ? Meditating. What benefits will I see if I quit smoking? Over time, you should start to see positive results, such as: ? Improved sense of smell and taste. ? Decreased coughing and sore throat. ? Slower heart rate. ? Lower blood pressure. ? Clearer and healthier skin. ? The ability to breathe more easily. ? Fewer sick days. Summary ? Quitting smoking can be very challenging. Do not get discouraged if you are not successful the first time. Some people need to make many attempts to quit before they achieve long-term success. ? When you decide to quit smoking, create a plan to help you succeed. ? Quit smoking right away, not slowly over a period of time. ? Find resources and support systems that can (more content not included)... [facility] 05-09-2024 Note - From: RIGOBERTO GONZALEZ DO To: [facility] Clinical Pool ([facility]); Sent: 05/09/2024 14:53:48 EDT Subject: FW: Medication Management Due Date/Time: 05/10/2024 14:42:00 EDT Caller Name: TAMAR BAUTISTA SR; Caller Number: Leatha , M , B -------- From: [facility] [id number] To: RIGOBERTO GONZALEZ DO Sent: May 09, 2024 1:42:56 PM CDT Subject: Medication Management Due: May 10, 2024 10:33:17 AM CDT On Hold Pending Signature Drug: gabapentin (gabapentin 100 mg oral capsule), TAKE ONE CAPSULE BY MOUTH THREE TIMES A DAY NEEDED FOR PAIN Quantity: 90 cap(s) Days Supply: 0 Refills: 0 Substitutions Allowed Notes from Pharmacy: Dispensed Drug: gabapentin (gabapentin 100 mg oral capsule), TAKE ONE CAPSULE BY MOUTH THREE TIMES A DAY NEEDED FOR PAIN Quantity: 90 cap(s) Days Supply: 30 Refills: 0 Substitutions Allowed Notes from Pharmacy: On Hold Pending Signature Drug: sertraline (sertraline 100 mg oral tablet), TAKE 1 AND 1/2 TABLET BY MOUTH DAILY Quantity: 135 tab(s) Days Supply: 0 Refills: 0 Substitutions Allowed Notes from Pharmacy: Dispensed Drug: sertraline (sertraline 100 mg oral tablet), TAKE 1 AND 1/2 TABLET BY MOUTH DAILY Quantity: 135 tab(s) Days Supply: 90 Refills: 0 Substitutions Allowed Notes from Pharmacy: On Hold Pending Signature Drug: amLODIPine (amLODIPine 10 mg oral tablet), TAKE 1 TABLET BY MOUTH DAILY Quantity: 90 tab(s) Days Supply: 0 Refills: 0 Substitutions Allowed Notes from Pharmacy: Dispensed Drug: amLODIPine (amLODIPine 10 mg oral tablet), TAKE 1 TABLET BY MOUTH DAILY Quantity: 90 tab(s) Days Supply: 90 Refills: 0 Substitutions Allowed Notes from Pharmacy: -------- Not Approved: Refill not appropriate gabapentin (GABAPENTIN 100 MG CAPSULE) TAKE ONE CAPSULE BY MOUTH THREE TIMES A DAY NEEDED FOR PAIN Qty: 90 cap(s) Days Supply: 30 Refills: 0 Substitutions Allowed Route To [facility] [id number] Signed by Shyanne Garcia Submitted: Order:amLODIPine (amLODIPine 10 mg oral tablet) 1 tab(s) Oral Daily Qty: 90 tab(s) Days Supply: 90 Refills: 0 Substitutions Allowed Route To Pharmacy [facility] [id number] Signed by Shyanne Garcia 05/09/2024 17:09:00 EDT Submitted: Complete:amLODIPine (amLODIPine 10 mg oral tablet) Signed by Shyanne Garcia 05/09/2024 17:09:00 EDT Not Approved: New Rx to follow amLODIPine (amLODIPine BESYLATE 10 MG TAB) TAKE 1 TABLET BY MOUTH DAILY Qty: 90 tab(s) Days Supply: 90 Refills: 0 Substitutions Allowed Route To [facility] [id number] Signed by Shyanne Garcia From: Shyanne Garcia To: [facility] [id number] Sent: 05/09/2024 17:10:16 EDT Subject: FW: Medication Management Submitted: Order:sertraline (sertraline 100 mg oral tablet) 1.5 tab(s) Oral Daily Qty: 135 tab(s) Days Supply: 90 Refills: 0 Substitutions Allowed Route To [facility] [id number] Signed by Shyanne Garcia 05/09/2024 17:09:00 EDT Submitted: Complete:sertraline (sertraline 100 mg oral tablet) Signed by Shyanne Garcia 05/09/2024 17:10:00 EDT Not Approved: New Rx to follow sertraline (SERTRALINE HCL 100 MG TABLET) TAKE 1 AND 1/2 TABLET BY MOUTH DAILY Qty: 135 tab(s) Days Supply: 90 Refills: 0 Substitutions Allowed Route To Pharmacy - [facility] [id number] Signed by Jose [facility] 05-06-2024 History of Present illness Narrative Images from the original note were not included. HISTORY OF PRESENT ILLNESS: Tamar Bautista is an 54 y.o. male. Chief Complaint: RT Elbow Pain RT Elbow: Previously saw Esme on 03/22/24. Has been wearing elbow sleeve (02/09/24) He has tried ice and voltaren with not much improvement. Pt states he burned his elbow on the stove door at work 4 months ago (beginning of December 2023). 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 Notes he has a scar now from where it burned him. That is when swelling began. Large lump/fluid posterior elbow, he states it may have gotten smaller over the last month. Pain if bumped. Denies N/T. Denies radiation. He has been using his arm.Denies waking at night. Admits norco for his back issues, no relief with elbow. Tried voltaren gel. Pt is RT handed. Prior Treatment: PCP 02/02/24, Alf wrap, XR Mag 02/09/24, Elbow Sleeve, Voltaren gel, Ice, [place] MEDICATION: Current Outpatient Medications on File Prior to Visit Medication Sig Dispense Refill albuterol 108 (90 Base) MCG/ACT inhaler every 6 (six) hours amLODIPine (Norvasc) 10 MG tablet 1 tab(s), Oral, Daily, # 90 tab(s), 1 Refill(s), Pharmacy: [facility] [id number], TAKE 1 TABLET BY MOUTH DAILY, 170.18, cm, 09/21/23 10:22:00 EST, Height, 71, kg, 09/21/23 10:29:00 EST, Weight Dosing atorvastatin (Lipitor) 10 MG tablet 1 tab(s), Oral, Daily, # 30 tab(s), 5 Refill(s), Pharmacy: [facility] [id number], 1 tab(s) Oral Daily, 170.18, cm, 06/18/23 10:07:00 EDT, Height budesonide-formoterol (Symbicort) 160-4.5 MCG/ACT inhaler every 12 (twelve) hours gabapentin (Neurontin) 300 MG capsule 300 mg glimepiride (Amaryl) 2 MG tablet 0.5 tab(s), Oral, Daily, # 30 tab(s), 5 Refill(s), Pharmacy: [facility] [id number], TAKE 1/2 TABLET BY MOUTH DAILY, 170.18, cm, 09/21/23 10:22:00 EST, Height, 71, kg, 09/21/23 10:29:00 EST, Weight Dosing HYDROcodone-acetaminophen ([place]) 5-325 MG tablet every 6 (six) hours metFORMIN (Glucophage) 500 MG tablet 500 mg sertraline (Zoloft) 100 MG tablet 1.5 tab(s), Oral, Daily, # 135 tab(s), 1 Refill(s), Pharmacy: [facility] [id number], TAKE 1 AND 1/2 TABLET BY MOUTH DAILY, 170.18, cm, 09/21/23 10:22:00 EST, Height, 71, kg, 09/21/23 10:29:00 EST, Weight Dosing tadalafil (Cialis) 5 MG tablet 1 tab(s), Oral, Daily, # 30 tab(s), 1 Refill(s), Pharmacy: [facility] [id number], TAKE 1 TABLET BY MOUTH DAILY, 170.18, cm, 09/21/23 10:22:00 EST, Height, 71, kg, 09/21/23 10:29:00 EST, Weight Dosing tamsulosin (Flomax) 0.4 MG 24 hr capsule 1 cap(s), Oral, Daily, # 30 cap(s), 5 Refill(s), Pharmacy: [facility] [id number], TAKE 1 CAPSULE BY MOUTH DAILY, 170.18, cm, 12/21/23 10:11:00 EDT, Height, 67.95, kg, 12/21/23 10:18:00 EDT, Weight Dosing terazosin (Hytrin) 5 MG capsule 5 mg [DISCONTINUED] doxycycline (Vibramycin) 100 MG capsule 1 capsule every 12 (twelve) hours No current facility-administered medications on file prior to visit. MEDICAL HISTORY: Past Medical History: Diagnosis Date Anxiety Arthritis Asthma (CMS/HCC) BPH (benign prostatic hyperplasia) BPV (benign positional vertigo) Diabetes (CMS/HCC) Hypertensive disorder (CMS/HCC) ALLERGIES: No Known Allergies VITALS: Visit Vitals Smoking Status Former PHYSICAL EXAM: Ortho Exam Full range motion of the right elbow. There is a moderate swollen bursa measuring 5 cm from proximal to distal and 3 cm proud. Is normal temp normal color nontender. Firm palpation is nontender. No signs of infection IMAGING: ASSESSMENT: ICD-10-CM 1. Olecranon bursitis, right elbow M70.21 PLAN: We discussed the option of excision and drainage versus observation and continuing to wear a compression band. Based on his lack of symptoms Other than the visual appearance I have recommended observation I have explained to him that it can become infected and that would be hot and red in the if this happens to follow up with us otherwise follow up as needed. I explained the diagnosis and reviewed treatment options. I answered all of the patient's questions. Herlinda Prado D.O. documented in this encounter [facility] 04-26-2024 Note - From: RIGOBERTO GONZALEZ DO To: [facility] Clinical Pool ([facility]); Sent: 04/26/2024 07:33:14 EDT Subject: FW: Medication Management Due Date/Time: 04/26/2024 17:31:00 EDT Caller Name: TAMAR BAUTISTA SR; Caller Number: , M , B -------- From: [facility] [id number] To: RIGOBERTO GONZALEZ DO Sent: April 25, 2024 4:31:37 PM CDT Subject: Medication Management Due: April 26, 2024 12:11:57 AM CDT On Hold Pending Signature Drug: gabapentin (gabapentin 100 mg oral capsule), TAKE ONE CAPSULE BY MOUTH THREE TIMES A DAY NEEDED FOR PAIN Quantity: 90 cap(s) Days Supply: 0 Refills: 0 Substitutions Allowed Notes from Pharmacy: Dispensed Drug: gabapentin (gabapentin 100 mg oral capsule), TAKE ONE CAPSULE BY MOUTH THREE TIMES A DAY NEEDED FOR PAIN Quantity: 90 cap(s) Days Supply: 30 Refills: 0 Substitutions Allowed Notes from Pharmacy: -------- From: Shyanne Garcia To: [facility] [id number] Sent: 04/26/2024 09:23:13 EDT Subject: FW: Medication Management Not Approved: Refill not appropriate, sent 04/25/2024 gabapentin (GABAPENTIN 100 MG CAPSULE) TAKE ONE CAPSULE BY MOUTH THREE TIMES A DAY NEEDED FOR PAIN Qty: 90 cap(s) Days Supply: 30 Refills: 0 Substitutions Allowed Route To Pharmacy - [facility] [id number] Signed by Shyanne Garcia [facility] [place] 04-25-2024 Note - From: RIGOBERTO GONZALEZ DO To: [facility] Clinical Pool ([facility]); Sent: 04/25/2024 07:31:43 EDT Subject: FW: Medication Management Due Date/Time: 04/25/2024 06:59:00 EDT Caller Name: TAMAR BAUTISTA SR; Caller Number: , M , B -------- From: [facility] [id number] To: RIGOBERTO GONZALEZ DO Sent: April 24, 2024 5:59:58 AM CDT Subject: Medication Management Due: April 25, 2024 1:19:04 AM CDT On Hold Pending Signature Drug: gabapentin (gabapentin 300 mg oral capsule), TAKE 1 CAPSULE BY MOUTH 3 TIMES A DAY Quantity: 90 cap(s) Days Supply: 0 Refills: 0 Substitutions Allowed Notes from Pharmacy: Dispensed Drug: gabapentin (gabapentin 300 mg oral capsule), TAKE 1 CAPSULE BY MOUTH 3 TIMES A DAY Quantity: 90 cap(s) Days Supply: 30 Refills: 0 Substitutions Allowed Notes from Pharmacy: -------- From: Shyanne Garcia To: [facility] [id number] Sent: 04/25/2024 10:31:36 EDT Subject: FW: Medication Management Not Approved: proposed to provider gabapentin (GABAPENTIN 300 MG CAPSULE) TAKE 1 CAPSULE BY MOUTH 3 TIMES A DAY Qty: 90 cap(s) Days Supply: 30 Refills: 0 Substitutions Allowed Route To [facility] [id number] Signed by Jose Shyanne [facility] [place] 04-12-2024 Note Entered by RHIANNA GONZALEZ DO on April 12, 2024 12:51:54 EDT From: RIGOBERTO GONZALEZ DO To: [facility] [id number] Sent: 04/12/2024 12:51:53 EDT Subject: Medication Management Submitted: Complete:tadalafil (tadalafil 5 mg oral tablet) Signed by RIGOBERTO GONZALEZ DO 04/12/2024 12:51:00 EDT Approved with modifications: tadalafil (TADALAFIL 20 MG TABLET) TAKE 1 TABLET BY MOUTH DAILY Qty: 10 tab(s) Days Supply: 10 Refills: 5 Substitutions Allowed Route To [facility] [id number] Approved with modifications: tadalafil (TADALAFIL 5 MG TABLET) TAKE 1 TABLET BY MOUTH DAILY Qty: 30 tab(s) Days Supply: 30 Refills: 5 Substitutions Allowed Route To Pharmacy [facility] [id number] -------- From: [facility] [id number] To: RIGOBERTO GONZALEZ DO Sent: April 12, 2024 11:41:19 AM CDT Subject: Medication Management Due: April 13, 2024 10:00:01 AM CDT On Hold Pending Signature Drug: tadalafil (Cialis 20 mg oral tablet), TAKE 1 TABLET BY MOUTH DAILY Quantity: 10 tab(s) Days Supply: 0 Refills: 2 Substitutions Allowed Notes from Pharmacy: Dispensed Drug: tadalafil (Tadalafil (Eqv-Cialis) 20 mg oral tablet), TAKE 1 TABLET BY MOUTH DAILY Quantity: 10 tab(s) Days Supply: 10 Refills: 0 Substitutions Allowed Notes from Pharmacy: On Hold Pending Signature Drug: tadalafil (tadalafil 5 mg oral tablet), TAKE 1 TABLET BY MOUTH DAILY Quantity: 30 tab(s) Days Supply: 0 Refills: 0 Substitutions Allowed Notes from Pharmacy: Dispensed Drug: tadalafil (tadalafil 5 mg oral tablet), TAKE 1 TABLET BY MOUTH DAILY Quantity: 30 tab(s) Days Supply: 30 Refills: 0 Substitutions Allowed Notes from Pharmacy: -------- [facility] [place] 03-21-2024 Note - From: RIGOBERTO GONZALEZ DO To: [facility] Clinical Pool ([facility]); Sent: 03/20/2024 14:06:55 EDT Subject: FW: Medication Management Due Date/Time: 03/20/2024 07:00:00 EDT Caller Name: TAMAR BAUTISTA SR; Caller Number: H , M , B -------- From: [facility] [id number] To: RIGOBERTO GONZALEZ DO Sent: March 19, 2024 6:00:22 AM CDT Subject: Medication Management Due: March 20, 2024 12:33:40 AM CDT On Hold Pending Signature Drug: gabapentin (gabapentin 300 mg oral capsule), TAKE 1 CAPSULE BY MOUTH 3 TIMES A DAY Quantity: 90 cap(s) Days Supply: 0 Refills: 0 Substitutions Allowed Notes from Pharmacy: Dispensed Drug: gabapentin (gabapentin 300 mg oral capsule), TAKE 1 CAPSULE BY MOUTH 3 TIMES A DAY Quantity: 90 cap(s) Days Supply: 30 Refills: 0 Substitutions Allowed Notes from Pharmacy: -------- From: Deric Hughes LPN To: [facility] [id number] Sent: 03/21/2024 08:03:40 EDT Subject: FW: Medication Management Not Approved: Patient has requested refill too soon gabapentin (GABAPENTIN 300 MG CAPSULE) TAKE 1 CAPSULE BY MOUTH 3 TIMES A DAY Qty: 90 cap(s) Days Supply: 30 Refills: 0 Substitutions Allowed Route To Pharmacy - [facility] [id number] Signed by Deric Hughes LPN [facility] [place] 03-17-2024 Note - From: RIGOBERTO GONZALEZ DO To: [facility] Clinical Pool ([facility]); Sent: 03/17/2024 07:39:20 EDT Subject: FW: Medication Management Due Date/Time: 03/17/2024 16:46:00 EDT Caller Name: TAMAR BAUTISTA SR; Caller Number: H , M , B -------- From: [facility] [id number] To: RIGOBERTO GONZALEZ DO Sent: March 16, 2024 3:46:37 PM CDT Subject: Medication Management Due: March 17, 2024 12:06:56 AM CDT On Hold Pending Signature Drug: tadalafil (tadalafil 5 mg oral tablet), TAKE 1 TABLET BY MOUTH DAILY Quantity: 30 tab(s) Days Supply: 0 Refills: 0 Substitutions Allowed Notes from Pharmacy: Dispensed Drug: tadalafil (tadalafil 5 mg oral tablet), TAKE 1 TABLET BY MOUTH DAILY Quantity: 30 tab(s) Days Supply: 30 Refills: 0 Substitutions Allowed Notes from Pharmacy: On Hold Pending Signature Drug: gabapentin (gabapentin 100 mg oral capsule), TAKE ONE CAPSULE BY MOUTH THREE TIMES A DAY NEEDED FOR PAIN Quantity: 90 cap(s) Days Supply: 0 Refills: 0 Substitutions Allowed Notes from Pharmacy: Dispensed Drug: gabapentin (gabapentin 100 mg oral capsule), TAKE ONE CAPSULE BY MOUTH THREE TIMES A DAY NEEDED FOR PAIN Quantity: 90 cap(s) Days Supply: 30 Refills: 0 Substitutions Allowed Notes from Pharmacy: On Hold Pending Signature Drug: tadalafil (Cialis 20 mg oral tablet), TAKE 1 TABLET BY MOUTH DAILY Quantity: 10 tab(s) Days Supply: 0 Refills: 2 Substitutions Allowed Notes from Pharmacy: Dispensed Drug: tadalafil (Tadalafil (Eqv-Cialis) 20 mg oral tablet), TAKE 1 TABLET BY MOUTH DAILY Quantity: 10 tab(s) Days Supply: 10 Refills: 0 Substitutions Allowed Notes from Pharmacy: On Hold Pending Signature Drug: gabapentin (gabapentin 300 mg oral capsule), TAKE 1 CAPSULE BY MOUTH 3 TIMES A DAY Quantity: 90 cap(s) Days Supply: 0 Refills: 0 Substitutions Allowed Notes from Pharmacy: Dispensed Drug: gabapentin (gabapentin 300 mg oral capsule), TAKE 1 CAPSULE BY MOUTH 3 TIMES A DAY Quantity: 90 cap(s) Days Supply: 30 Refills: 0 Substitutions Allowed Notes from Pharmacy: -------- From: Shyanne Garcia To: [facility] [id number] Sent: 03/17/2024 16:11:04 EDT Subject: FW: Medication Management Not Approved: proposed to provider gabapentin (GABAPENTIN 100 MG CAPSULE) TAKE ONE CAPSULE BY MOUTH THREE TIMES A DAY NEEDED FOR PAIN Qty: 90 cap(s) Days Supply: 30 Refills: 0 Substitutions Allowed Route To [facility] [id number] Signed by Shyanne Garcia Not Approved: proposed to provider tadalafil (TADALAFIL 5 MG TABLET) TAKE 1 TABLET BY MOUTH DAILY Qty: 30 tab(s) Days Supply: 30 Refills: 0 Substitutions Allowed Route To [facility] [id number] Signed by Shyanne Garcia Not Approved: proposed to provider tadalafil (TADALAFIL 20 MG TABLET) TAKE 1 TABLET BY MOUTH DAILY Qty: 10 tab(s) Days Supply: 10 Refills: 0 Substitutions Allowed Route To [facility] [id number] Signed by Shyanne Garcia Not Approved: proposed to provider gabapentin (GABAPENTIN 300 MG CAPSULE) TAKE 1 CAPSULE BY MOUTH 3 TIMES A DAY Qty: 90 cap(s) Days Supply: 30 Refills: 0 Substitutions Allowed Route To [facility] [id number] Signed by Shyanne Garcia [facility] [place] 03-04-2024 Note - From: RIGOBERTO GONZALEZ DO To: [facility] Clinical Pool ([facility]); Sent: 03/03/2024 10:24:32 EDT Subject: FW: Medication Management Due Date/Time: 03/03/2024 18:21:00 EDT Caller Name: TAMAR BAUTISTA SR; Caller Number: , M , B -------- From: [facility] [id number] To: RIGOBERTO GONZALEZ DO Sent: March 01, 2024 5:21:44 PM CDT Subject: Medication Management Due: March 02, 2024 12:05:53 AM CDT On Hold Pending Signature Drug: gabapentin (gabapentin 100 mg oral capsule), TAKE ONE CAPSULE BY MOUTH THREE TIMES A DAY NEEDED FOR PAIN Quantity: 90 cap(s) Days Supply: 0 Refills: 0 Substitutions Allowed Notes from Pharmacy: Dispensed Drug: gabapentin (gabapentin 100 mg oral capsule), TAKE ONE CAPSULE BY MOUTH THREE TIMES A DAY NEEDED FOR PAIN Quantity: 90 cap(s) Days Supply: 30 Refills: 0 Substitutions Allowed Notes from Pharmacy: On Hold Pending Signature Drug: tadalafil (tadalafil 5 mg oral tablet), TAKE 1 TABLET BY MOUTH DAILY Quantity: 30 tab(s) Days Supply: 0 Refills: 0 Substitutions Allowed Notes from Pharmacy: Dispensed Drug: tadalafil (tadalafil 5 mg oral tablet), TAKE 1 TABLET BY MOUTH DAILY Quantity: 30 tab(s) Days Supply: 30 Refills: 0 Substitutions Allowed Notes from Pharmacy: On Hold Pending Signature Drug: tadalafil (Cialis 20 mg oral tablet), TAKE 1 TABLET BY MOUTH DAILY Quantity: 10 tab(s) Days Supply: 0 Refills: 2 Substitutions Allowed Notes from Pharmacy: Dispensed Drug: tadalafil (Tadalafil (Eqv-Cialis) 20 mg oral tablet), TAKE 1 TABLET BY MOUTH DAILY Quantity: 10 tab(s) Days Supply: 10 Refills: 0 Substitutions Allowed Notes from Pharmacy: -------- Submitted: Complete:tadalafil (tadalafil 5 mg oral tablet) Signed by Deric Hughes LPN 03/04/2024 09:38:00 EDT Approved with modifications: tadalafil (TADALAFIL 5 MG TABLET) TAKE 1 TABLET BY MOUTH DAILY Qty: 30 tab(s) Days Supply: 30 Refills: 0 Substitutions Allowed Route To [facility] [id number] Signed by Deric Hughes LPN Not Approved: Refill not appropriate tadalafil (TADALAFIL 20 MG TABLET) TAKE 1 TABLET BY MOUTH DAILY Qty: 10 tab(s) Days Supply: 10 Refills: 0 Substitutions Allowed Route To Pharmacy [facility] [id number] Signed by Deric Hughes LPN From: Deric Hughes LPN To: [facility] [id number] Sent: 03/04/2024 09:39:13 EDT Subject: FW: Medication Management Not Approved: Patient has requested refill too soon gabapentin (GABAPENTIN 100 MG CAPSULE) TAKE ONE CAPSULE BY MOUTH THREE TIMES A DAY NEEDED FOR PAIN Qty: 90 cap(s) Days Supply: 30 Refills: 0 Substitutions Allowed Route To Pharmacy - [facility] [id number] Signed by Deric Hughes LPN [facility] 02-22-2024 Note - From: RIGOBERTO GONZALEZ DO To: [facility] Clinical Pool ([facility]); Sent: 02/20/2024 06:30:45 EDT Subject: FW: Medication Management Due Date/Time: 02/20/2024 06:29:00 EDT Caller Name: TAMAR BAUTISTA SR; Caller Number: , M , B -------- From: [facility] [id number] To: RIGOBERTO GONZALEZ DO Sent: February 19, 2024 5:29:22 AM CDT Subject: Medication Management Due: February 20, 2024 12:08:29 AM CDT On Hold Pending Signature Drug: gabapentin (gabapentin 300 mg oral capsule), TAKE 1 CAPSULE BY MOUTH 3 TIMES A DAY Quantity: 90 cap(s) Days Supply: 0 Refills: 0 Substitutions Allowed Notes from Pharmacy: Dispensed Drug: gabapentin (gabapentin 300 mg oral capsule), TAKE 1 CAPSULE BY MOUTH 3 TIMES A DAY Quantity: 90 cap(s) Days Supply: 30 Refills: 0 Substitutions Allowed Notes from Pharmacy: -------- From: Shyanne Garcia To: [facility] [id number] Sent: 02/22/2024 09:29:48 EDT Subject: FW: Medication Management Not Approved: proposed to provider gabapentin (GABAPENTIN 300 MG CAPSULE) TAKE 1 CAPSULE BY MOUTH 3 TIMES A DAY Qty: 90 cap(s) Days Supply: 30 Refills: 0 Substitutions Allowed Route To Pharmacy - [facility] [id number] Signed by Shyanne Garcia [facility] [place] 02-16-2024 Note Entered by RHIANNA GONZALEZ DO on February 16, 2024 07:34:04 EDT From: RIGOBERTO GONZALEZ DO To: [facility] [id number] Sent: 02/16/2024 07:34:04 EDT Subject: Medication Management Submitted: Complete:atorvastatin (atorvastatin 10 mg oral tablet) Signed by RIGOBERTO GONZALEZ DO 02/16/2024 07:34:00 EDT Approved with modifications: atorvastatin (ATORVASTATIN 10 MG TABLET) TAKE 1 TABLET BY MOUTH DAILY Qty: 30 tab(s) Days Supply: 30 Refills: 5 Substitutions Allowed Route To Pharmacy - [facility] [id number] -------- From: [facility] [id number] To: RIGOBERTO GONZALEZ DO Sent: February 16, 2024 5:29:25 AM CDT Subject: Medication Management Due: February 17, 2024 12:06:08 AM CDT On Hold Pending Signature Drug: atorvastatin (atorvastatin 10 mg oral tablet), TAKE 1 TABLET BY MOUTH DAILY Quantity: 30 tab(s) Days Supply: 0 Refills: 4 Substitutions Allowed Notes from Pharmacy: Dispensed Drug: atorvastatin (atorvastatin 10 mg oral tablet), TAKE 1 TABLET BY MOUTH DAILY Quantity: 30 tab(s) Days Supply: 30 Refills: 0 Substitutions Allowed Notes from Pharmacy: -------- [facility] [place] 01-20-2024 Note - From: RIGOBERTO GONZALEZ DO To: [facility] Clinical Pool ([facility]); Sent: 01/20/2024 07:32:04 EDT Subject: FW: Medication Management Due Date/Time: 01/20/2024 19:30:00 EDT Caller Name: SONIA TAMAR AGUILAR; Caller Number: Leatha , M , B -------- From: [facility] [id number] To: RIGOBERTO GONZALEZ DO Sent: January 19, 2024 6:30:20 PM CDT Subject: Medication Management Due: January 20, 2024 11:04:21 AM CDT On Hold Pending Signature Drug: metFORMIN (metFORMIN 500 mg oral tablet), TAKE 1 TABLET BY MOUTH TWICE A DAY Quantity: 180 tab(s) Days Supply: 0 Refills: 0 Substitutions Allowed Notes from Pharmacy: Dispensed Drug: metFORMIN (metFORMIN 500 mg oral tablet), TAKE 1 TABLET BY MOUTH TWICE A DAY Quantity: 180 tab(s) Days Supply: 90 Refills: 0 Substitutions Allowed Notes from Pharmacy: On Hold Pending Signature Drug: gabapentin (gabapentin 100 mg oral capsule), TAKE ONE CAPSULE BY MOUTH THREE TIMES A DAY NEEDED FOR PAIN Quantity: 90 cap(s) Days Supply: 0 Refills: 0 Substitutions Allowed Notes from Pharmacy: Dispensed Drug: gabapentin (gabapentin 100 mg oral capsule), TAKE ONE CAPSULE BY MOUTH THREE TIMES A DAY NEEDED FOR PAIN Quantity: 90 cap(s) Days Supply: 30 Refills: 0 Substitutions Allowed Notes from Pharmacy: On Hold Pending Signature Drug: gabapentin (gabapentin 300 mg oral capsule), TAKE 1 CAPSULE BY MOUTH 3 TIMES A DAY Quantity: 90 cap(s) Days Supply: 0 Refills: 0 Substitutions Allowed Notes from Pharmacy: Dispensed Drug: gabapentin (gabapentin 300 mg oral capsule), TAKE 1 CAPSULE BY MOUTH 3 TIMES A DAY Quantity: 90 cap(s) Days Supply: 30 Refills: 0 Substitutions Allowed Notes from Pharmacy: -------- From: Shyanne Garcia To: [facility] [id number] Sent: 01/20/2024 16:03:46 EDT Subject: FW: Medication Management Not Approved: proposed to provider metFORMIN (METFORMIN HCL 500 MG TABLET) TAKE 1 TABLET BY MOUTH TWICE A DAY Qty: 180 tab(s) Days Supply: 90 Refills: 0 Substitutions Allowed Route To [facility] [id number] Signed by Shyanne Garcia Not Approved: proposed to provider gabapentin (GABAPENTIN 100 MG CAPSULE) TAKE ONE CAPSULE BY MOUTH THREE TIMES A DAY NEEDED FOR PAIN Qty: 90 cap(s) Days Supply: 30 Refills: 0 Substitutions Allowed Route To Pharmacy [facility] [id number] Signed by Shyanne Garcia Not Approved: proposed to provider gabapentin (GABAPENTIN 300 MG CAPSULE) TAKE 1 CAPSULE BY MOUTH 3 TIMES A DAY Qty: 90 cap(s) Days Supply: 30 Refills: 0 Substitutions Allowed Route To [facility] [id number] Signed by Jose Shyanne [facility] [place] 12-23-2023 Note Entered by RHIANNA GONZALEZ DO on December 23, 2023 13:01:06 EDT From: RIGOBERTO GONZALEZ DO To: [facility] [id number] Sent: 12/23/2023 13:01:06 EDT Subject: Medication Management Submitted: Complete:tamsulosin (tamsulosin 0.4 mg oral capsule) Signed by RIGOBERTO GONZALEZ DO 12/23/2023 13:01:00 EDT Approved with modifications: tamsulosin (TAMSULOSIN HCL 0.4 MG CAPSULE) TAKE 1 CAPSULE BY MOUTH DAILY Qty: 30 cap(s) Days Supply: 30 Refills: 5 Substitutions Allowed Route To Pharmacy [facility] [id number] -------- [facility] [id number] To: RIGOBERTO GONZALEZ DO Sent: December 23, 2023 9:57:05 AM CDT Subject: Medication Management Due: December 24, 2023 12:06:23 AM CDT On Hold Pending Signature Drug: tamsulosin (tamsulosin 0.4 mg oral capsule), TAKE 1 CAPSULE BY MOUTH DAILY Quantity: 30 cap(s) Days Supply: 0 Refills: 2 Substitutions Allowed Notes from Pharmacy: Dispensed Drug: tamsulosin (tamsulosin 0.4 mg oral capsule), TAKE 1 CAPSULE BY MOUTH DAILY Quantity: 30 cap(s) Days Supply: 30 Refills: 0 Substitutions Allowed Notes from Pharmacy: -------- [facility] [place] 12-08-2023 Note - From: RIGOBERTO GONZALEZ DO To: [facility] Clinical Pool [facility] Sent: 12/07/2023 19:51:09 EDT Subject: FW: Medication Management Due Date/Time: 12/08/2023 13:49:00 EDT Caller Name: TAMAR BAUTISTA SR; Caller Number: H , M , B -------- [facility] [id number] To: RIGOBERTO GONZALEZ DO Sent: December 07, 2023 12:49:17 PM CDT Subject: Medication Management Due: December 08, 2023 12:03:36 AM CDT On Hold Pending Signature Drug: acetaminophen-hydrocodone (acetaminophen-hydrocodone 325 mg-5 mg oral tablet), TAKE 1 TABLET BY MOUTH AT BEDTIME Quantity: 0 tab(s) Days Supply: 0 Refills: 0 Substitutions Allowed Notes from Pharmacy: Dispensed Drug: acetaminophen-hydrocodone (acetaminophen-hydrocodone 325 mg-5 mg oral tablet), TAKE 1 TABLET BY MOUTH AT BEDTIME Quantity: 30 tab(s) Days Supply: 30 Refills: 0 Substitutions Allowed Notes from Pharmacy: -------- From: Marielos Chen To: [facility] [id number] Sent: 12/08/2023 14:39:52 EDT Subject: FW: Medication Management Not Approved: Refill not appropriate, proposal sent to provider acetaminophen-hydrocodone (HYDROCODONE-ACETAMIN 5-325 MG) TAKE 1 TABLET BY MOUTH AT BEDTIME Qty: 30 tab(s) Days Supply: 30 Refills: 0 Substitutions Allowed Route To Pharmacy - [facility] [id number] Signed by Marielos Chen [facility] [place] 12-07-2023 Note Entered by RHIANNA GONZALEZ DO on December 07, 2023 07:36:15 EDT From: RIGOBERTO GONZALEZ DO To: [facility] [id number] Sent: 12/07/2023 07:36:15 EDT Subject: Medication Management Submitted: Complete:sertraline (sertraline 100 mg oral tablet) Signed by RIGOBERTO GONZALEZ DO 12/07/2023 07:36:00 EDT Approved with modifications: sertraline (SERTRALINE HCL 100 MG TABLET) TAKE 1 AND 1/2 TABLET BY MOUTH DAILY Qty: 135 tab(s) Days Supply: 90 Refills: 1 Substitutions Allowed Route To Pharmacy - [facility] [id number] -------- From: [facility] [id number] To: RIGOBERTO GONZALEZ DO Sent: December 05, 2023 5:37:37 PM CDT Subject: Medication Management Due: December 06, 2023 12:30:39 AM CDT On Hold Pending Signature Drug: sertraline (sertraline 100 mg oral tablet), TAKE 1 AND 1/2 TABLET BY MOUTH DAILY Quantity: 135 tab(s) Days Supply: 0 Refills: 0 Substitutions Allowed Notes from Pharmacy: Dispensed Drug: sertraline (sertraline 100 mg oral tablet), TAKE 1 AND 1/2 TABLET BY MOUTH DAILY Quantity: 135 tab(s) Days Supply: 90 Refills: 0 Substitutions Allowed Notes from Pharmacy: -------- [facility] [place] 12-05-2023 Note Entered by RHIANNA GONZALEZ DO on December 05, 2023 08:25:31 EDT From: RIGOBERTO GONZALEZ DO To: [facility] [id number] Sent: 12/05/2023 08:25:31 EDT Subject: Medication Management Submitted: Complete:tadalafil (tadalafil 20 mg oral tablet) Signed by RIGOBERTO GONZALEZ DO 12/05/2023 08:25:00 EDT Submitted: Complete:tadalafil (tadalafil 5 mg oral tablet) Signed by RIGOBERTO GONZALEZ DO 12/05/2023 08:25:00 EDT Approved with modifications: tadalafil (TADALAFIL 5 MG TABLET) TAKE 1 TABLET BY MOUTH DAILY Qty: 30 tab(s) Days Supply: 30 Refills: 1 Substitutions Allowed Route To Pharmacy - [facility] [id number] -------- From: [facility] [id number] To: RIGOBERTO GONZALEZ DO Sent: December 04, 2023 9:55:06 AM CDT Subject: Medication Management Due: December 05, 2023 12:05:46 AM CDT On Hold Pending Signature Drug: tadalafil (tadalafil 5 mg oral tablet), TAKE 1 TABLET BY MOUTH DAILY Quantity: 30 tab(s) Days Supply: 0 Refills: 0 Substitutions Allowed Notes from Pharmacy: Dispensed Drug: tadalafil (tadalafil 5 mg oral tablet), TAKE 1 TABLET BY MOUTH DAILY Quantity: 30 tab(s) Days Supply: 30 Refills: 0 Substitutions Allowed Notes from Pharmacy: -------- [facility] [facility] [place] 11-17-2023 Note Entered by RHIANNA GONZALEZ DO on November 17, 2023 13:51:29 EDT From: RIGOBERTO GONZALEZ DO To: [facility] [id number] Sent: 11/17/2023 13:51:29 EDT Subject: Medication Management Submitted: Complete:amLODIPine (amLODIPine 10 mg oral tablet) Signed by RIGOBERTO GONZALEZ DO 11/17/2023 13:51:00 EDT Approved with modifications: amLODIPine (amLODIPine BESYLATE 10 MG TAB) TAKE 1 TABLET BY MOUTH DAILY Qty: 90 tab(s) Days Supply: 90 Refills: 1 Substitutions Allowed Route To Pharmacy - [facility] [id number] -------- From: [facility] [id number] To: RIGOBERTO GONZALEZ DO Sent: November 17, 2023 11:41:36 AM CDT Subject: Medication Management Due: November 18, 2023 12:08:59 AM CDT On Hold Pending Signature Drug: amLODIPine (amLODIPine 10 mg oral tablet), TAKE 1 TABLET BY MOUTH DAILY Quantity: 90 tab(s) Days Supply: 0 Refills: 0 Substitutions Allowed Notes from Pharmacy: Dispensed Drug: amLODIPine (amLODIPine 10 mg oral tablet), TAKE 1 TABLET BY MOUTH DAILY Quantity: 90 tab(s) Days Supply: 90 Refills: 0 Substitutions Allowed Notes from Pharmacy: -------- [facility] [place] Evaluation + Plan note Future Appointments Appointment Date:08/09/2024 08:45:00 AM Scheduled Provider:Eliud WILLIAM MD Location:[facility] Appointment Type:URO Office Visit [facility] Evaluation + Plan note Future Appointments Appointment Date:10/19/2024 02:00:00 PM Scheduled Provider:Eliud WILLIAM MD Location:[facility] Appointment Type:URO Office Visit [facility] Evaluation + Plan note Future Appointments Appointment Date:11/02/2024 09:15:00 AM Scheduled Provider:Eliud WILLIAM MD Location:[facility] Appointment Type:URO Office Visit [facility] Evaluation + Plan note Future Appointments Appointment Date:11/02/2024 09:15:00 AM Scheduled Provider:Eliud WILLIAM MD Location:[facility] Appointment Type:URO Office Visit Diagnostic Tests PendingPSA Total 10/19/24 [facility] Evaluation note No assessment inform ation available [facility] Work Phone: Evaluation note Diagnosis Type 2 diabetes mellitus with peripheral neuropathy (CMS/HCC)- Primary Tinea unguium Dermatophytosis of nail Pain in left toe(s) Pain in right toe(s) Tinea pedis due to epidermophyton Dermatophytosis of foot [facility] Diagnosis Olecranon bursitis, right elbow- Primary [facility] Diagnosis Tinea unguium- Primary Dermatophytosis of nail Type 2 diabetes mellitus with peripheral neuropathy (CMS/HCC) Pain in left toe(s) Pain in right toe(s) [facility] N[facility] No data available for this section [facility] Hospital Discharge instructions No data available for this section [facility] Progress note No data available for this section [facility] Chief Complaint and Reason for Visit Chief Complaint Screening Chief Complaint Admit Date scrotum swelling September 28, 2024 2 :03pm Advance Directives No Advanced Directives Records Found Advance Directive Response Recorded Date/ Time Advance Directives No May 8:46am Summary Purpose Family History No Family History Records Found Additional Source Comments Care Teams (unrecognized sec tion and content) Team Status: Inactive Member Role Status Dates Hu Gomez MD Primary Care Provider Active Fernando De León MD Attending Provider Active Team Status: Active Member Role Status Dates Hu Gomez MD Primary Care Provider Active [employer] Relationship Specialty Start Date End Date Rigoberto Gonzalez MD [address] [place] [address] PCP - General Family Medicine 02/08/24 [employer] Relationship Specialty Start Date End Date Rigoberto Gonzalez MD [address] [place] [address] PCP - General Family Medicine 02/08/24 [employer] Relationship Specialty Start Date End Date Rigoberto Gonzalez MD [address] [place] [address] PCP - General Family Medicine 02/08/24 [employer] Relationship Specialty Start Date End Date Rigoberto Gonzalez MD [address] [place] [address] PCP - General Family Medicine 02/08/24 Team Status: Active Member Role Status Dates Rigoberto Gonzalez DO Primary Care Provider Active Team Status: Inactive Member Role Status Dates OSIEL Sanders Attending Provider Active Start: September 28, 2024 End: September 28, 2024 Rigoberto Gonzalez DO Primary Care Provider Active Start: September 28, 2024 End: September 28, 2024 [employer]ward[employer] Relationship Specialty Start Date End Date Rigoberto Gonzalez MD [address] [place] [address] PCP - General Family Medicine 02/08/24 [employer] Relationship Specialty [place] [address] [place] [id number] PCP - General Family Medicine 02/08/24 Goals (unrecognized section and content) Goals may be documented in a n alternate section No data available for this section No data available for this sectionGoals may be documented in an alternate section No data available for this section No data available for this section No data available for this section Reason for Visit (unrecogniz ed section and content) Reason Comments Toenail Care Reason Comments Follow-up (unrecognized sect ion and content) No Status Records FoundNo Status Records FoundNo Status Records FoundNo Status Records FoundNo Status Records Found INFORMATION SOURCE (unrecogn ized section and content) DATE CREATED AUTHOR 10/08/2024 [facility] DATE CREATED AUTHOR AUTHOR'S ORGANIZ ATION 10/11/2024 [facility] DATE CREATED AUTHOR AUTHOR'S ORGANIZ ATION 11/05/2024 [facility] DATE CREATED AUTHOR AUTHOR'S ORGANIZ ATION 11/14/2024 [facility] DATE CREATED AUTHOR AUTHOR'S ORGANIZ ATION 11/16/2024 [facility] FOR RECORDS PERTAINING TO PATIENTS WHO ARE OR HAVE BEEN ENROLLED IN A CHEMICAL DEPENDENCY/SUBSTANCEABUSE PROGRAM, SOME INFORMATION MAY BE OMITTED. This clinical summary was aggregated from multiple sources. Caution should be exercised in using it in the provision of clinical care. This summary normalizes information from multiple sources, and as a consequence, information in this document may materially change the coding, format and clinical context of patient data. In addition, data may be omitted in some cases. CLINICAL DECISIONS SHOULD BE BASED ON THE PRIMARY CLINICAL RECORDS. [facility]. provides no warranty or guarantee of the accuracy or completeness of information in this document.
[2024-11-24 08:12] LABS: Glucometer 156 mg/dL (74-106)
[2024-11-24] MEDS: LACTATED RINGER'S SOLUTION 1,000 ML 50 ML IV ×2 (08:32→11:03)
[2024-11-24] MEDS: CEFAZOLIN SODIUM 2 GM/50 ML D5W PREMIX IV (08:43)
[2024-11-24] MEDS: BACITRACIN OINTMENT 28.4 GM TUBE 1 APPLIC TOPICAL (10:08)
--- NOTE | 2024-11-24 10:26 | P.URON_ITS ---
Urology Surgery Operative Note Operative Note Procedure Date: 11/24/24 Time Out Performed: yes Pre-op Diagnosis: Large left hydrocele Post-op Diagnosis: same as pre-op Procedures performed: 1. Left hydrocelectomy Anesthesia: General-LMA Primary Surgeon: Eliud William Complications: None Estimated blood loss (mL): 5 Findings: Large tense left hydrocele Specimens: Hydrocele sac Drains: None Indications for Procedures: This gentleman has a large left hydrocele which is tense and bothersome. He is desirous of left hydrocelectomy. He has signed an informed consent after all risks were explained. Detailed description of Procedure: The patient was brought to the operating room and placed on the operating room table in the supine position. SCDs were placed on his lower extremities and turned on and functioning during the entire case. Timeout was done by all parties in the room. General anesthesia was then administered via LMA. The lower abdomen and genitalia were sterilely prepped and draped in the usual fashion. I started by making a left transverse hemiscrotal incision with a 15 blade scalpel. Sharp dissection was carried down through the scrotal layers until I arrived at a very tense blue hydrocele. This large hydrocele was sharply and bluntly dissected free of the scrotal attachments and then delivered out of the incision. I bluntly dissected the spermatic cord free. I then sharply cut into the hydrocele sac and aspirated 350 cc of straw-colored fluid. The edges of the sac were then tagged with hemostats and the redundant sac was circumferentially excised and sent for permanent sections. The remaining edges of the sac were coagulated with the Bovie cautery. We had excellent hemostasis. The testicle and epididymis looked very viable. Small bleeders were coagulated and the dartos layer. We irrigated the left testicle and scrotum. Once we had perfect hemostasis we then allowed the left hemiscrotal contents to go back into the left hemiscrotum in the proper anatomic orientation. I closed the dartos with 3-0 Vicryl in a running fashion. The skin was closed with 4-0 Vicryl in a running fashion. Bacitracin was applied to the skin. Sterile fluffs were placed over the incision as well as a scrotal support. He was then transferred to a [facility] bed and wheeled to PACU in stable condition.
--- NOTE | 2024-11-24 11:41 | PC.NURSE ---
1030: pt voids without difficulty,clear yellow
== END 2024-11-24 11:47 | disposition home or self-care (01) ==
PROVIDERS: PCP Family Medicine; Visit Provider Urology
PROC: (CPT 920; principal; 2024-11-24 08:45)
DX: N43.3 Hydrocele, unspecified (principal); F41.9 Anxiety disorder, unspecified; J45.909 Unspecified asthma, uncomplicated; I10 Essential (primary) hypertension; E78.00 Pure hypercholesterolemia, unspecified; M19.90 Unspecified osteoarthritis, unspecified site; E11.9 Type 2 diabetes mellitus without complications; Z79.84 Long term (current) use of oral hypoglycemic drugs; Z87.891 Personal history of nicotine dependence; K21.9 Gastro-esophageal reflux disease without esophagitis
CPT/HCPCS: 55040; 36415; 82948; 88302; J0131; J0690; J1100; J1885; J2250; J2371; J2405; J2704; J3010